=== PATIENT | female | born 1990 | race Caucasian/White ===

== ENCOUNTER 2016-06-06 17:40 | Observation (INO) | payer BC, MEDICAID ==
[~2016-06-06] VITALS: Ht 167.6 cm; Wt 119.7 kg
[~2016-06-06 17:40] MED LIST: FLC150T PO; FRS325T PO; IBP600T1 PO; NITR100C3 PO; OXYC-12 PO; PHEN200T27 PO; PREN1TAB19 PO; PREN1TAB39; [UNRECOGNIZED DRUG - OTHER]
[2016-06-06 18:20] VITALS: BP 126/70
[2016-06-06 18:38] LABS: BASOPHILS % (AUTO) 0 % (0-10); EOSINOPHILS # (AUTO) 0.1 10^3/uL (0.0-0.3); EOSINOPHILS % (AUTO) 1 % (0-10); LYMPHOCYTES # (AUTO) 2.1 X 10^3 (1.0-4.0); LYMPHOCYTES % (AUTO) 21 % (12-44); MEAN CORPUSCULAR HEMOGLOBIN 29 PG (25-34); MEAN CORPUSCULAR HGB CONC 33 G/DL (32-36); MEAN CORPUSCULAR VOLUME 88 FL (80-99); MEAN PLATELET VOLUME 9.9 FL (7.4-10.4); MONOCYTES # (AUTO) 0.7 X 10^3 (0.0-1.0); MONOCYTES % (AUTO) 7 % (0-12); NEUTROPHILS # (AUTO) 7.1 X 10^3 (1.8-7.8); NEUTROPHILS % (AUTO) 71 % (42-75); PLATELET COUNT 211 10^3/uL (130-400); RED BLOOD COUNT 4.08 10^6/uL (4.35-5.85); RED CELL DISTRIBUTION WIDTH 13.6 % (10.0-14.5); WHITE BLOOD COUNT 9.9 10^3/uL (4.3-11.0)
[2016-06-06 18:55] LABS: ALANINE AMINOTRANSFERASE 11 U/L (0-55); ALBUMIN 3.6 G/DL (3.2-4.5); ANION GAP 11 MMOL/L (5-14); ASPARTATE AMINO TRANSFERASE 21 U/L (5-34); BILIRUBIN,TOTAL 0.1 MG/DL (0.1-1.0); BLOOD UREA NITROGEN 5 MG/DL (7-18); BUN/CREATININE RATIO 9; CALCIUM 8.5 MG/DL (8.5-10.1); CARBON DIOXIDE 18 MMOL/L (21-32); CHLORIDE 109 MMOL/L (98-107); CREATININE SERUM 0.56 MG/DL (0.60-1.30); GFR ESTIMATED > 60; GLUCOSE 93 MG/DL (70-105); LACTATE DEHYDROGENASE 308 U/L (125-220); SODIUM 138 MMOL/L (135-145); URIC ACID 3.6 MG/DL (2.6-7.2)
[2016-06-06 18:57] LABS: POTASSIUM 4.2 MMOL/L (3.6-5.0)
[2016-06-06 19:06] VITALS: BP 129/65
[2016-06-06] MEDS ORDERED: FLU TRIvalent (5 YOA+) 2016-17 (AFLURIA) 0.5 ML IM ONE (19:45)
[2016-06-06 20:10] VITALS: BP 130/62
[2016-06-07 00:45] VITALS: BP 116/70
[2016-06-07 04:45] VITALS: BP 109/67
[2016-06-07 08:55] VITALS: BP 123/67
[2016-06-07 09:38] VITALS: BP 123/67
[2016-06-07 11:53] VITALS: BP 123/59
[2016-06-07 16:59] VITALS: BP 138/66
[2016-06-08] MEDS ORDERED: PRENATAL VITAMIN 1 EA TAB PO SCH (07:00)
[2016-06-08] MEDS ORDERED: FE FUMARATE PO SCH (09:00)
[2016-06-08] MEDS ORDERED: [UNRECOGNIZED DRUG - OTHER] PO SCH (09:00)
[2016-06-08] MEDS ORDERED: PRENATAL VIT PO SCH (09:00)
--- NOTE | 2016-06-08 17:56 | Short Stay Summary ---
HPI History of Present Illness: 26 yo F admitted from clinic by Dr Delarosa for 24 hr urine. Patient was seen in clinic today with blood pressures in the 160s/90s with headache. No previous blood pressure concerns. Denies any labor signs. + FM. Source: patient, RN/MD Exam Limitations: no limitations Date seen by provider: Jun 07, 2016 Time seen by provider: 08:35 Attending Physician Jeff Delarosa MD PCP Jeff Delarosa MD Consult Date of Admission Jun 06, 2016 at 17:40 Home Medications Home Medications Reviewed patient Home Medication Reconciliation Form Allergies Coded Allergies: Sulfa (Sulfonamide Antibiotics) (Unverified Allergy, Mild, HIVES, 12/22/10) DGF-Oinltl-Aeluvw Hx Patient Social History Smoking Status: Never a Smoker Recent Foreign Travel: No Contact w/other who traveled: No Recent Infectious Disease Expo: No Physical Abuse Screen: No Sexual Abuse: No Immunizations Up To Date Tetanus Booster (TDap): Less than 5yrs Past Medical History No PMHx Family Medical History Family History: Cancer Cancer of colon 19 FATHER (PGM, breast) 19 MOTHER (MGM, cervical) Family history: Arthritis Family history: Cardiovascular disease 19 MOTHER (MGM, MGF) Family history: Diabetes mellitus 19 MOTHER (MGM, aunts) Family history: Hypertension 19 FATHER 19 MOTHER Heart disease 19 MOTHER (MGF, MGM) Hypercholesterolemia 19 FATHER Stroke 19 MOTHER (MGM) No Family History of: Abdominal aortic aneurysm Montrose's disease Alcoholism Aphasia Cataract Chest pain Congenital heart disease Congestive heart failure Cystic fibrosis Dementia Dysphagia Family history: Allergy Family history: Alzheimer's disease Family history: Asthma Family history: Breast disease Family history: Coronary thrombosis Family history: Gastrointestinal disease Family history: Glaucoma Family history: Osteoporosis Family history: Thyroid disorder Headache Hearing loss Hereditary disease History of - anemia History of - disorder History of - respiratory disease History of drug abuse Human immunodeficiency virus (HIV) seropositivity Infertile Kidney disease Malignant neoplasm of lung Myocardial infarction Parkinson's disease Prostate cancer Psychotic disorder Seizure disorder Tuberculosis Visual impairment Review of Systems (CHC) Constitutional: no symptoms reportedNo chills, No fever, No weakness EENTM: no symptoms reportedNo blurred vision, No double vision, No hearing loss Respiratory: no symptoms reportedNo cough, No dyspnea on exertion, No short of breath Cardiovascular: no symptoms reportedNo chest pain, edema (trace edema, no acute changes) Gastrointestinal: no symptoms reportedNo abdominal pain, No constipation, No diarrhea, No heartburn, No nausea, No vomiting Genitourinary: no symptoms reportedNo dysuria, No frequency, No hematuria : Yes Musculoskeletal: no symptoms reportedNo joint swelling Skin: no symptoms reportedNo rash Psychiatric/Neurological: No Symptoms Reported HeadacheDenies Numbness Reviewed Test Results Reviewed Test Results Lab Laboratory Tests Test 06/06/16 18:15 06/07/16 17:48 Range/Units Alanine Aminotransferase (ALT/SGPT) 11 0-55 U/L Albumin 3.6 3.2-4.5 G/DL Alkaline Phosphatase 92 40-136 U/L Anion Gap 11 5-14 MMOL/L Aspartate Amino Transf (AST/SGOT) 21 5-34 U/L BUN/Creatinine Ratio 9 Basophils # (Auto) 0.0 0.0-0.1 10^3/uL Basophils (%) (Auto) 0 0-10 % Blood Urea Nitrogen 5 L 7-18 MG/DL Calcium Level 8.5 8.5-10.1 MG/DL Carbon Dioxide Level 18 L 21-32 MMOL/L Chloride Level 109 H 98-107 MMOL/L Creatinine 0.56 L 0.60-1.30 MG/DL Eosinophils # (Auto) 0.1 0.0-0.3 10^3/uL Eosinophils (%) (Auto) 1 0-10 % Estimat Glomerular Filtration Rate > 60 Glucose Level 93 70-105 MG/DL Hematocrit 36 35-52 % Hemoglobin 12.0 11.5-16.0 G/DL Lactate Dehydrogenase 308 H 125-220 U/L Lymphocytes # (Auto) 2.1 1.0-4.0 X 10^3 Lymphocytes (%) (Auto) 21 12-44 % Mean Corpuscular Hemoglobin 29 25-34 PG Mean Corpuscular Hemoglobin Concent 33 32-36 G/DL Mean Corpuscular Volume 88 80-99 FL Mean Platelet Volume 9.9 7.4-10.4 FL Monocytes # (Auto) 0.7 0.0-1.0 X 10^3 Monocytes (%) (Auto) 7 0-12 % Neutrophils # (Auto) 7.1 1.8-7.8 X 10^3 Neutrophils (%) (Auto) 71 42-75 % Platelet Count 211 130-400 10^3/uL Potassium Level 4.2 3.6-5.0 MMOL/L Red Blood Count 4.08 L 4.35-5.85 10^6/uL Red Cell Distribution Width 13.6 10.0-14.5 % Sodium Level 138 135-145 MMOL/L Total Bilirubin 0.1 0.1-1.0 MG/DL Total Protein 7.0 6.4-8.2 G/DL Uric Acid 3.6 2.6-7.2 MG/DL White Blood Count 9.9 4.3-11.0 10^3/uL Urine Total Protein 24 Hour 0-149 MG/24H Urine Total Protein mg/dL < 6 L 6-12 MG/DL Urine Total Volume 3300 ML Physical Exam-([facility]) Physical Exam Vital Signs VS - Last 72 Hours, by Label 06/06/16 06/06/16 06/06/16 06/07/16 18:20 19:06 20:10 00:45 Temp 98.7 98.6 98.4 Pulse 95 84 89 99 Resp 18 18 18 18 B/P 126/70 129/65 130/62 116/70 Pulse Ox 95 O2 Delivery Room Air Room Air Room Air Room Air 06/07/16 06/07/16 06/07/16 06/07/16 04:45 08:55 09:38 11:53 Temp 98.8 98.8 98.1 Pulse 90 103 103 83 Resp 18 18 18 18 B/P 109/67 123/67 123/67 123/59 Pulse Ox 98 O2 Delivery Room Air Room Air Room Air 06/07/16 06/07/16 16:59 19:48 Temp 98.3 Pulse 84 Resp 18 B/P 138/66 O2 Delivery Room Air Capillary Refill : General Appearance: WD/WN no apparent distress Eyes: Bilateral Eye EOMI, Bilateral Eye Normal Inspection, Bilateral Eye PERRL Neck: non-tender full range of motion supple normal inspection Respiratory: chest non-tender lungs clear normal breath sounds no respiratory distress no accessory muscle use Cardiovascular: regular rate, rhythm no gallop no JVD no murmur other (trace edema) Gastrointestinal: normal bowel sounds non tender soft (gravid uterus) no organomegaly no pulsatile mass Back: no CVA tenderness Extremities: normal range of motion non-tender normal inspection no calf tenderness normal capillary refill Neurologic/Psychiatric: manager retirement II-XII nml as tested no motor/sensory deficits alert normal mood/affect oriented x 3 other (Normal patellar reflexes) Skin: normal color warm/dry Lymphatic: no adenopathy Short Stay Diagnosis Discharge Diagnosis-Short Stay Admission Diagnosis 2nd trimester Gestational HTN Final Discharge Diagnosis See Above Conclusion Plan 26 yo @ 26.6 wga that was admitted for elevated blood pressures in clinic. Blood pressures were controlled during hospitalization without intervention. 24 hr urine was collected with undetectable amount of protein. Patient was discharged with good return precautions regarding pre eclampsia and has close follow up with Dr Delarosa Copy Copies To 1: JEFF DELAROSA MD, HOLLY R MD Jun 08, 2016 17:56
== END 2016-06-07 18:54 | disposition home or self-care (01) ==
LOC: LDRP 17:40 → WSo 17:49 → LDRP 18:10 → WSo 06-07 19:49 → LDRP 06-07 19:49 → EDSTATUS 06-08 14:00
PROVIDERS: ADMIT Family Medicine; ATTEND Family Medicine
DX: O13.2 Gestational [pregnancy-induced] hypertension without significant proteinuria, second trimester (principal); Z3A.26 26 weeks gestation of pregnancy
CPT/HCPCS: 36415; 80053; 83615; 84156; 84550; 85025; 99211; G0378

== ENCOUNTER → 2016-06-27 | Outpatient (CLI) | payer BC, MEDICAID ==
[~2016-06-27] MED LIST changes: +IBUP-1773 PO; +LABE50DI IV
--- NOTE | 2016-06-27 17:44 | Diagnostic Imaging Report ---
INDICATION: Gestational hypertension. OB sonography performed for measurements. Comparison made with 05/16/2016. FINDINGS: Single live intrauterine fetus is seen measuring 30 weeks 3 days by composite measurements. This is about 1 week larger than expected for original dates. The fetus is in cephalic presentation. The amniotic fluid index is 16.3 cm. Cervical length is 6.8 cm. heart rate is 128 beats per minute. IMPRESSION: Single live intrauterine fetus measuring at 30 weeks 3 days in size, about 1 week larger than expected from original dates but probably within variation of late . There was no detectable abnormality. Dictated by: Dictated on workstation # [id number]
== END ==
LOC: RAD 16:55
PROVIDERS: ATTEND Family Medicine
DX: O13.3 Gestational [pregnancy-induced] hypertension without significant proteinuria, third trimester (principal); Z3A.30 30 weeks gestation of pregnancy
CPT/HCPCS: 76816

== ENCOUNTER 2016-07-03 17:34 | Outpatient (CLI) | payer BC, MEDICAID ==
[~2016-07-03] VITALS: Ht 167.6 cm; Wt 115.7 kg
[~2016-07-03 17:34] MED LIST changes: -IBUP-1773 PO; -LABE50DI IV
[2016-07-03 18:56] LABS: BASOPHILS % (AUTO) 0 % (0-10); EOSINOPHILS # (AUTO) 0.1 10^3/uL (0.0-0.3); EOSINOPHILS % (AUTO) 1 % (0-10); LYMPHOCYTES # (AUTO) 2.4 X 10^3 (1.0-4.0); LYMPHOCYTES % (AUTO) 27 % (12-44); MEAN CORPUSCULAR HEMOGLOBIN 30 PG (25-34); MEAN CORPUSCULAR HGB CONC 34 G/DL (32-36); MEAN CORPUSCULAR VOLUME 88 FL (80-99); MEAN PLATELET VOLUME 9.7 FL (7.4-10.4); MONOCYTES # (AUTO) 0.5 X 10^3 (0.0-1.0); MONOCYTES % (AUTO) 6 % (0-12); NEUTROPHILS # (AUTO) 5.9 X 10^3 (1.8-7.8); NEUTROPHILS % (AUTO) 67 % (42-75); PLATELET COUNT 180 10^3/uL (130-400); RED BLOOD COUNT 3.83 10^6/uL (4.35-5.85); RED CELL DISTRIBUTION WIDTH 13.6 % (10.0-14.5); WHITE BLOOD COUNT 8.9 10^3/uL (4.3-11.0)
[2016-07-03 19:20] LABS: ALANINE AMINOTRANSFERASE 7 U/L (0-55); ALBUMIN 3.3 G/DL (3.2-4.5); ANION GAP 12 MMOL/L (5-14); ASPARTATE AMINO TRANSFERASE 9 U/L (5-34); BILIRUBIN,TOTAL 0.2 MG/DL (0.1-1.0); BLOOD UREA NITROGEN 5 MG/DL (7-18); BUN/CREATININE RATIO 9; CARBON DIOXIDE 19 MMOL/L (21-32); CHLORIDE 109 MMOL/L (98-107); CREATININE SERUM 0.57 MG/DL (0.60-1.30); GFR ESTIMATED > 60; GLUCOSE 104 MG/DL (70-105); LACTATE DEHYDROGENASE 147 U/L (125-220); POTASSIUM 3.4 MMOL/L (3.6-5.0); SODIUM 140 MMOL/L (135-145); TOTAL PROTEIN 6.1 G/DL (6.4-8.2)
[2016-07-03 20:05] VITALS: BP 113/61
[2016-07-03] MEDS ORDERED: LABE50DI IV (20:20)
--- NOTE | 2016-07-04 09:21 | Physician Query-Final Dx ---
KRYSTLE SANTORO 07/04/16 0921: Clinic Account Progress/Dx Physician Query: Please give diagnosis Date of Service Jul 03, 2016 at 17:34 JEFF PANDEY MD 07/04/16 1332: Clinic Account Progress/Dx DIAGNOSIS: Diagnosis 30 weeks gestation Preeclampsia KRYSTLE SANTORO Jul 04, 2016 09:21 JEFF PANDEY MD Jul 04, 2016 13:32
== END 2016-07-03 20:30 | disposition home or self-care (01) ==
LOC: WSo 17:34 → LDRP 17:34 → WSo 20:30
PROVIDERS: ATTEND Family Medicine
DX: O14.93 Unspecified pre-eclampsia, third trimester (principal); Z3A.30 30 weeks gestation of pregnancy
CPT/HCPCS: 36415; 80053; 82570; 83615; 84156; 84550; 85025; 99213

== ENCOUNTER 2016-08-30 05:51 | Inpatient (IN) | payer BC, MEDICAID ==
[2016-08-30] VITALS (63 sets, daily range): BP systolic 105–139; BP diastolic 54–86
[~2016-08-30] VITALS: Ht 167.6 cm; Wt 121.1 kg
[~2016-08-30 05:51] MED LIST changes: +LABE50DI IV
[2016-08-30] MEDS ORDERED: D5 LR IV SOLUTION 1,000 ML IV ONE (06:11)
[2016-08-30] MEDS ORDERED: MINERAL OIL CONCENTRATE 99.9% 15 ML UDC TOP PRN (06:15)
[2016-08-30 06:21] LABS: BILIRUBIN,URINE NEGATIVE (NEGATIVE); KETONES,URINE NEGATIVE (NEGATIVE); LEUKOCYTE ESTERASE ,URINE 2+ (NEGATIVE); NITRITE,URINE NEGATIVE (NEGATIVE); PH,URINE 7 (5-9); PROTEIN,URINE NEGATIVE (NEGATIVE); UROBILINOGEN,URINE NORMAL (NORMAL)
[2016-08-30] MEDS: D5 LR IV SOLUTION 1,000 ML IV SCH ×2 (06:54→14:22)
[2016-08-30 06:57] LABS: WBC,URINE 0-2 /HPF
[2016-08-30 07:22] LABS: BASOPHILS % (AUTO) 0 % (0-10); EOSINOPHILS # (AUTO) 0.1 10^3/uL (0.0-0.3); EOSINOPHILS % (AUTO) 1 % (0-10); LYMPHOCYTES # (AUTO) 2.5 X 10^3 (1.0-4.0); LYMPHOCYTES % (AUTO) 28 % (12-44); MEAN CORPUSCULAR HEMOGLOBIN 28 PG (25-34); MEAN CORPUSCULAR HGB CONC 33 G/DL (32-36); MEAN CORPUSCULAR VOLUME 87 FL (80-99); MEAN PLATELET VOLUME 10.3 FL (7.4-10.4); MONOCYTES # (AUTO) 0.7 X 10^3 (0.0-1.0); MONOCYTES % (AUTO) 8 % (0-12); NEUTROPHILS # (AUTO) 5.8 X 10^3 (1.8-7.8); NEUTROPHILS % (AUTO) 64 % (42-75); PLATELET COUNT 189 10^3/uL (130-400); RED BLOOD COUNT 3.95 10^6/uL (4.35-5.85); RED CELL DISTRIBUTION WIDTH 14.3 % (10.0-14.5); WHITE BLOOD COUNT 9.1 10^3/uL (4.3-11.0)
[2016-08-30] MEDS ORDERED: FLU TRIvalent (5 YOA+) 2016-17 (AFLURIA) 0.5 ML IM ONE (07:30)
[2016-08-30] MEDS ORDERED: OXYTOCIN/NORMAL SALINE 500 ML IV SCH ×2 (08:06→20:27)
--- NOTE | 2016-08-30 08:12 | History & Physical-OB ---
OB - Chief Complaint & HPI Date Date of Admission: Date of Admission: Aug 30, 2016 at 5:51 am Chief Complaint/History OB-Reason for Admission/Chief: Induction of Labor Hx : 3 Hx Para: 2 Expected Date of Delivery: Sep 07, 2016 Gestational Age in Weeks: 38 Gestational Age in Days: 6 Indication for induction: medical complication (gestational hypertension with superimposed proteinuria/mild preeclampsia) Other reason for admission: at 38w6d here for IOL due to mild preeclampsia. Initially with severe gestational hypertension at 26 weeks requiring treatment with labetalol. Referred to [facility] and has been following weekly there with BPP, umbilical artery dopplers and intermittent growth scans. At 29 weeks, pr/cr ratio 0.305 leading to diagnosis of mild preeclampsia superimposed on HTN. Last growth done last week with EFW 3433 and normal BPP and umbilical dopplers. Weekly preeclampsia labs have been negative with the exception of the mild proteinuria. History of Labs O+, antibody neg. RI. GC/Chlamydia neg. RPR/Hep B/HIV neg. Quad screen low risk. 1 hour glucola nml. GBS neg. Allergies and Home Medications Allergies Coded Allergies: Sulfa (Sulfonamide Antibiotics) (Verified Allergy, Mild, HIVES, 08/30/16) Home Medications Labetalol HCl 50 Mg/10 Ml Syringe, 50 MG IV BID, (Reported) Vit/Fe Fumarate/Fa 1 Each Tablet, 1 EACH PO DAILY, (Reported) OB - History Hx of Present Care: Yes Ultrasounds: Normal mid trimester US Obstetrical Complications: Pre-eclampsia Medical Complications: None Information Induced Hypertension: Yes Maternal Gestational Diabetes: No Obstetrical History Hx : 3 Hx Para: 2 Hx # Term Pregnancies: 2 Hx # Pregnancies: 0 Number of Living Children: 2 Hx Termination: No Hx Multiple Gestation: No Hx Ectopic : No Hx Stillbirth: No Hx Complication: No Hx Induced Hypertens: No Hx Maternal Gestational Diabet: No Delivery History Hx Dystocia: No Hx Forceps Assisted Delivery: No Hx Vacuum Extraction Assisted: No Hx Placenta Abnormality: No Hx Large For Gestational Age I: No Hx Small for Gestational Age I: No Hx Section: No Hx Vaginal Delivery Post C-Sec: No Hx Blood Disorders: No Patient Past Medical History No PMHx Social History/Family History HIV/AIDS: No Recent Infectious Disease Expo: No Sexually Transmitted Disease: No Alcohol Use: Denies Use Recreational Drug Use: No Smoking Cessation: Never smoker Immunizations Hepatitis A: Yes Hepatitis B: Yes Tetanus Booster (TDap): Less than 5yrs Rubella: immune RPR/VDRL: Negative GBS Status: Negative HBsAG: Negative OB - Admission Exam Physical Exam Vitals: Vital Signs 08/30/16 06:10 Temp 98.0 Pulse 111 Resp 18 B/P (MAP) 139/83 O2 Delivery Room Air HEENT: NCAT Abdomen: Non tender Extremities: Edema (mild non-pitting) Cervical Dilatation: 4cm Effacement: 25% Station: -3 Membranes: Intact Heart Rate: 140's Accelerations: Accelerations Present Decelerations: No Decelerations Short Term Variability: Present Equipment Maintenance Technician Variability: Average (6-25) Contractions on Admission: 6-10 Minutes Apart Intensity: Mild Billingsley Scoring Tool (Modified) Dilation (cm): 3-4cm (2) Effacement (%): 0-30% (0) Descent/Station: -3 (0) Cervix Consistency: Soft (2) Cervix Position: Anterior (2) Add 1 point for: Pre-eclampsia (1), Each previous vaginal delivery (1) (2) Billingsley Score: 9 Labs Laboratory Tests Test 08/30/16 06:05 08/30/16 07:05 Range/Units Urine Color YELLOW Urine Clarity CLEAR Urine pH 7 5-9 Urine Specific [place] 1.010 L 1.016-1.022 Urine Protein NEGATIVE NEGATIVE Urine Glucose (UA) NEGATIVE NEGATIVE Urine Ketones NEGATIVE NEGATIVE Urine Nitrite NEGATIVE NEGATIVE Urine Bilirubin NEGATIVE NEGATIVE Urine Urobilinogen NORMAL NORMAL MG/DL Urine Leukocyte Esterase 2+ H NEGATIVE Urine RBC (Auto) NEGATIVE NEGATIVE Urine RBC NONE /HPF Urine WBC 0-2 /HPF Urine Squamous Epithelial Cells 10-25 H /HPF Urine Crystals NONE /LPF Urine Bacteria TRACE /HPF Urine Casts NONE /LPF Urine Mucus NEGATIVE /LPF Urine Culture Indicated NO White Blood Count 9.1 4.3-11.0 10^3/uL Red Blood Count 3.95 L 4.35-5.85 10^6/uL Hemoglobin 11.2 L 11.5-16.0 G/DL Hematocrit 34 L 35-52 % Mean Corpuscular Volume 87 80-99 FL Mean Corpuscular Hemoglobin 28 25-34 PG Mean Corpuscular Hemoglobin Concent 33 32-36 G/DL Red Cell Distribution Width 14.3 10.0-14.5 % Platelet Count 189 130-400 10^3/uL Mean Platelet Volume 10.3 7.4-10.4 FL Neutrophils (%) (Auto) 64 42-75 % Lymphocytes (%) (Auto) 28 12-44 % Monocytes (%) (Auto) 8 0-12 % Eosinophils (%) (Auto) 1 0-10 % Basophils (%) (Auto) 0 0-10 % Neutrophils # (Auto) 5.8 1.8-7.8 X 10^3 Lymphocytes # (Auto) 2.5 1.0-4.0 X 10^3 Monocytes # (Auto) 0.7 0.0-1.0 X 10^3 Eosinophils # (Auto) 0.1 0.0-0.3 10^3/uL Basophils # (Auto) 0.0 0.0-0.1 10^3/uL OB - Assessment/Plan/Diagnosis Assessment Assessment: induction of labor Plan Plan: Induction Induction Method: per Pitocin Protocol Other Plan Preeclampsia- magnesium sulfate per protocol, decrease maintenance fluid to 80 mls/hr, treat hypertension above 160/100 as needed with IV labetalol Copy Copies To 1: JEFF PANDEY MD, BETHANY N MD Aug 30, 2016 8:12 am
[2016-08-30] MEDS ORDERED: CALCIUM GLUC. 10% 4.65 MEQ/10 ML VIAL IV PRN (08:15)
[2016-08-30] MEDS ORDERED: MAGNESIUM 4 GM/100 ML IVPB 100 ML IV NR (08:15)
[2016-08-30 08:30] LABS: ALANINE AMINOTRANSFERASE 8 U/L (0-55); ANION GAP 7 MMOL/L (5-14); ASPARTATE AMINO TRANSFERASE 9 U/L (5-34); BILIRUBIN,TOTAL 0.2 MG/DL (0.1-1.0); BLOOD UREA NITROGEN 5 MG/DL (7-18); BUN/CREATININE RATIO 9; CALCIUM 9.3 MG/DL (8.5-10.1); CARBON DIOXIDE 21 MMOL/L (21-32); CHLORIDE 107 MMOL/L (98-107); CREATININE SERUM 0.58 MG/DL (0.60-1.30); GFR ESTIMATED > 60; GLUCOSE 104 MG/DL (70-105); LACTATE DEHYDROGENASE 164 U/L (125-220); MAGNESIUM 1.5 MG/DL (1.8-2.4); POTASSIUM 3.9 MMOL/L (3.6-5.0); SODIUM 135 MMOL/L (135-145); TOTAL PROTEIN 5.9 G/DL (6.4-8.2); URIC ACID 4.1 MG/DL (2.6-7.2)
[2016-08-30] MEDS: MAGNESIUM SULFATE DRIP 500 ML IV SCH ×3 (08:35→18:32)
[2016-08-30] MEDS ORDERED: ACETAMINOPHEN 500 MG TAB (TYLENOL) ONE (09:13)
[2016-08-30] MEDS: ACETAMINOPHEN 500 MG TAB (TYLENOL) PO PRN ×2 (09:17→20:25)
[2016-08-30] MEDS ORDERED: SUFENTA 0.6MCG/ML BUPIVA 0.125 100 ML ONE (10:31)
[2016-08-30] MEDS ORDERED: BUPIVACAINE 0.25% 30 ML (SENSORCAINE) VIAL ONE (11:52)
[2016-08-30] MEDS ORDERED: fentaNYL INJECTION 100 MCG/2 ML AMP ONE (11:52)
[2016-08-30] MEDS ORDERED: LACTATED RINGERS 1,000 ML IV ONE ×2 (12:22)
[2016-08-30] MEDS ORDERED: fentaNYL INJECTION 100 MCG/2 ML AMP INJ ONE (12:30)
[2016-08-30] MEDS ORDERED: ONDANSETRON 4 MG/2 ML (SDV) Z0FRAN IV PRN (12:30)
[2016-08-30] MEDS ORDERED: EPIDURAL (SUFENTA 0.6MCG/ML BUPIVA 0.125%) 100 ML BAG EPI PRN (12:30)
[2016-08-30] MEDS ORDERED: BUPIVACAINE 0.25% 30 ML (SENSORCAINE) VIAL INJ ONE (12:30)
[2016-08-30] MEDS ORDERED: NALOXONE 0.4 MG/ML 1 ML (NARCAN) VIAL IV PRN (12:30)
--- NOTE | 2016-08-30 12:45 | OB Labor & Delivery Record ---
L&D History Date of Service Date of Service: Aug 30, 2016 History Expected Date of Delivery: Sep 07, 2016 Gestational Age in Weeks: 38 Hx : 3 Hx Para: 2 Complications Events: Pre-Eclampsia Operative Indications (Cesarea: N/A-Vaginal Delivery L&D Stage1 Stage One Onset of Labor - Date: Aug 30, 2016 Onset of Labor - Time: 08:00 Duration - Stage I: 10.5 hours Monitors and Tracing Monitor Mode: External Heart Rate: 135 Station: -1 Vital Signs VS - Last 72 Hours, by Label 08/30/16 08/30/16 08/30/16 08/30/16 06:10 08:00 08:30 08:45 Temp 98.0 Pulse 111 88 94 90 Resp 18 18 18 18 B/P (MAP) 139/83 128/71 125/64 130/74 O2 Delivery Room Air Room Air Room Air Room Air 08/30/16 08/30/16 08/30/16 08/30/16 09:00 09:15 09:30 09:45 Pulse 88 88 92 81 Resp 18 18 20 20 B/P (MAP) 120/68 120/68 123/68 116/66 O2 Delivery Room Air Room Air Room Air Room Air 08/30/16 08/30/16 08/30/16 08/30/16 10:00 10:15 10:30 10:45 Temp 98.4 Pulse 74 83 75 81 Resp 20 20 20 20 B/P (MAP) 117/59 115/62 111/68 113/62 O2 Delivery Room Air Room Air Room Air Room Air Rupture of Membranes Spontaneous Ruture of Membrane: No Amniotic Membrane Rupture Time: 12:36 Amniotic Membrane Fluid Desc.: Clear Progress/Notes 1240: Comfortable with epidural. Pitocin at 16. SVE 4.5/30%/-3. FHT 130-140, moderate variability, occasional variable deceleration. Ctx 2-3/10. AROM at 1236 with clear fluid. FSE placed due to difficulty tracing. Continue magnesium , pitocin, monitor closely, no elevated BP so far. Anticipate . L&D Stage2 Stage Two Stage II Date: Aug 30, 2016 Stage II Time: 18:45 Stage II Duration: 1 hour Monitors and Tracing Monitor Mode: External Heart Rate: 135 Monitor Decelerations: Variable Prison Variability: Average (6-10) Short Term Variability: Present Position: Left Occiput Anterior Presentation: Vertex Cord Descript/Complications Cord Vessel Description: 3 Vessels Delivery Type Delivery Method: Spontaneous Vaginal Anterior Shoulder: Left Episiotomy/Perineal Laceration Laceraction(s)/Extensions: No Episiotomy Description: Periurethral Extnsion/lac (abrasion) Degree (describe repair) Abrasion, no repair needed Condition of Infant Delivery Delivery Date & Time: 08/30/16 at 1947 1 minute Comment: 8 5 minute Comment: 8 Condition of Condition of Infant: Living Exam: No Observed Abnormalities Resuscitation Resuscitation: Oxygen Blowby L&D Stage3 Stage Three Stage III Date: Aug 30, 2016 Stage III Time: 19:47 Placenta Delivery Placenta Delivery: Spontaneous Delivery Summary Summary Total Labor Time 11.5 Vaginal blood loss >500ml: No 250 ml Attending at delivery: MD Rhea Villalobos MD PGY-2 [place] [employer] [employer] Resident Condition of Delivery Condition of Mother Stable Condition of (s) Stable JEFF PANDEY MD Aug 30, 2016 12:45 pm
[2016-08-30] MEDS ORDERED: CATHETER FLUSH 10 ML SYR IV SCH ×2 (14:00→22:00)
[2016-08-30] MEDS ORDERED: LIDOCAINE/EPI 1%-1:200,000 (XYLOCAINE) 30 ML VIAL ONE (19:31)
[2016-08-30] MEDS ORDERED: BENZOCAINE/MENTHOL (DERMOPLAST) 56 ML CAN TP PRN (20:30)
[2016-08-30] MEDS ORDERED: WITCH HAZEL(TUCKS) 40 EA JAR TOP PRN (20:30)
[2016-08-30 20:34] LABS: ABG BASE EXCESS -4.5 MMOL/L (-2.5-2.5); ABG HCO3 20 MMOL/L (23-27); ABG OXYGEN SATURATION 101 % (94-100); ABG PCO2 38 MMHG (35-45); ABG PO2 73 MMHG (79-93); CORD ARTERIAL BLOOD PH 7.35 (7.35-7.45)
[2016-08-30] MEDS ORDERED: ACETAMINOPHEN 500 MG TAB (TYLENOL) PO PRN (20:45)
[2016-08-31] VITALS (11 sets, daily range): BP systolic 95–123; BP diastolic 51–69
[2016-08-31] MEDS: D5 LR IV SOLUTION 1,000 ML IV SCH (02:52)
[2016-08-31] MEDS: MAGNESIUM SULFATE DRIP 500 ML IV SCH (05:56)
[2016-08-31 06:17] LABS: BASOPHILS % (AUTO) 0 % (0-10); EOSINOPHILS # (AUTO) 0.1 10^3/uL (0.0-0.3); EOSINOPHILS % (AUTO) 1 % (0-10); LYMPHOCYTES # (AUTO) 2.5 X 10^3 (1.0-4.0); LYMPHOCYTES % (AUTO) 24 % (12-44); MEAN CORPUSCULAR HEMOGLOBIN 29 PG (25-34); MEAN CORPUSCULAR HGB CONC 33 G/DL (32-36); MEAN CORPUSCULAR VOLUME 88 FL (80-99); MEAN PLATELET VOLUME 10.2 FL (7.4-10.4); MONOCYTES # (AUTO) 0.6 X 10^3 (0.0-1.0); MONOCYTES % (AUTO) 6 % (0-12); NEUTROPHILS # (AUTO) 7.1 X 10^3 (1.8-7.8); NEUTROPHILS % (AUTO) 69 % (42-75); PLATELET COUNT 183 10^3/uL (130-400); RED BLOOD COUNT 3.51 10^6/uL (4.35-5.85); RED CELL DISTRIBUTION WIDTH 14.3 % (10.0-14.5); WHITE BLOOD COUNT 10.2 10^3/uL (4.3-11.0)
[2016-08-31] MEDS ORDERED: PRENATAL VITAMIN 1 EA TAB PO SCH (07:00)
[2016-08-31] MEDS: ACETAMINOPHEN 500 MG TAB (TYLENOL) PO PRN ×2 (07:10→14:17)
--- NOTE | 2016-08-31 13:30 | Anesthesia-Regional Post-Op ---
Regional Patient Condition Mental Status: Alert, Oriented x3 Circulation: Same as Pre-Op Headache: Absent Sensation: Full Recovery Motor Block: Absent Post Op Complications Complications None Follow Up Care/Instructions Patient Instructions None needed. Anesthesia/Patient Condition Patient is doing well, no complaints, stable vital signs, no apparent adverse anesthesia problems. No complications reported per nursing. RIDDHI QURESHI CRNA Aug 31, 2016 13:30
--- NOTE | 2016-08-31 18:20 | Progress Note (SOAP) ---
Subjective Subjective/Events-last exam No concerns this AM. + flatus, lochia same as period, denies clots. Tolerating PO and ambulation. Clement remains in as Magnesium was just discontinued. Date seen by provider: Aug 31, 2016 Time seen by provider: 09:15 Objective Exam Last Set of Vital Signs Vital Signs Date Time Temp Pulse Resp B/P (MAP) Pulse Ox O2 Delivery O2 Flow Rate FiO2 08/31/16 16:15 98.5 88 18 110/58 96 Room Air 08/30/16 19:45 10.00 Capillary Refill : I&O Bad tableGeneral: Alert, Oriented X3, Cooperative, No Acute Distress Lungs: Clear to Auscultation, Normal Air Movement Heart: Regular Rate, No Murmurs Abdomen: Soft, Other (fundus below umbilicus) Extremities: Other (1+ pitting edema bilaterally, no tenderness) Neuro: Reflexes 2+ Results/Procedures Lab Laboratory Tests 08/30/16 19:51: Arterial Blood Partial Pressure CO2 38, Arterial Blood Partial Pressure O2 73L, Arterial Blood HCO3 20L, Arterial Blood Oxygen Saturation 101H, Arterial Blood Base Excess -4.5L, Cord Arterial Blood pH 7.35, Blood Gas Inspired Oxygen ROOM AIR 08/31/16 06:04: White Blood Count 10.2, Red Blood Count 3.51L, Hemoglobin 10.0L, Hematocrit 31L , Mean Corpuscular Volume 88, Mean Corpuscular Hemoglobin 29, Mean Corpuscular Hemoglobin Concent 33, Red Cell Distribution Width 14.3, Platelet Count 183, Mean Platelet Volume 10.2, Neutrophils (%) (Auto) 69, Lymphocytes (%) (Auto) 24 , Monocytes (%) (Auto) 6, Eosinophils (%) (Auto) 1, Basophils (%) (Auto) 0, Neutrophils # (Auto) 7.1, Lymphocytes # (Auto) 2.5, Monocytes # (Auto) 0.6, Eosinophils # (Auto) 0.1, Basophils # (Auto) 0.0 Assessment/Plan Assessment/Plan Plan 26 yo G3 now P3 del term female infant via while on Magnesium for pre eclampsia now PPD #1 Plan Routine post care Magnesium has been discontinued, clement to be d/c now Blood pressures <120, well controlled Bleeding controlled Hgb 11.2-->10.0 Pain well controlled on Motrin Breast feeding Plan to d.c tomorrow with , BP check next week with Dr Delarosa Diagnosis/Problems: Clinical Quality Measures DVT/VTE Risk/Contraindication: Risk Factor Score Per Nursin RFS Level Per Nursing on Admit: 3=High RODNEY CASTRO MD Aug 31, 2016 18:20
[2016-08-31] MEDS: IBUPROFEN 600 MG (MOTRIN) TAB PO SCH (18:22)
[2016-09-01 00:21] VITALS: BP 129/72
[2016-09-01] MEDS: IBUPROFEN 600 MG (MOTRIN) TAB PO SCH ×3 (00:41→15:03)
[2016-09-01 02:17] VITALS: BP 128/85
[2016-09-01 05:00] VITALS: BP 126/68
[2016-09-01 06:08] VITALS: BP 118/79
[2016-09-01 09:25] VITALS: BP 126/80
[2016-09-01] MEDS ORDERED: IBUP-1773 PO (11:42)
--- NOTE | 2016-09-01 11:44 | Discharge Instructions ---
Discharge Inst-Women's Serv Depart Medications New, Converted or Re-Newed RX: Call to Patients Pharmacy Final Diagnosis Mild pre eclampsia New Medications: Ibuprofen (Ibuprofen) 600 Mg Tablet 600 MG PO Q6HR for 30 Days, TAB Continued Medications: Vit/Fe Fumarate/Fa ( Vitamins Tablet) 1 Each Tablet 1 EACH PO DAILY, TAB Discontinued Medications: Labetalol HCl (Labetalol HCl) 50 Mg/10 Ml Syringe 50 MG IV BID, SYRINGE Follow Up/Instructions Goal/Follow Up: You will need to call and make f/u appt with Dr Delarosa for 6 weeks Patient Instructions: - Make sure that you stay well hydrated for breast feeding Activity Activity: Activity as Tolerated Driving Instructions: You May Drive NO SMOKING: NO SMOKING Nothing Inside Vagina: No Douching, No [place], No Tampons Diet Discharge Diet: No Restrictions Symptoms to Report to : Swelling Increased, Bleeding Excessive, Fever Over 101 Degrees F, Pain/Pressure in Chest, Questions/Concerns, Wt Gain Consecutive Days, Nausea/Vomiting, Shortness of Breath, Weight Gain Over 2 Pounds For Any Problems or Questions: Contact Your Physician Copies To 1: JEFF DELAROSA MD, HOLLY R MD Sep 01, 2016 11:44
--- NOTE | 2016-09-02 20:10 | Discharge Summary ---
Diagnosis/Chief Complaint Date of Admission Aug 30, 2016 at 05:51 Date of Discharge Sep 01, 2016 at 15:20 Admission Diagnosis Admission Diagnosis Mild Pre eclampsia of Term female Discharge Diagnosis see above Chief Complaint/HPI Chief Complaint/HPI IOL for mild pre eclampsia Discharge Summary-Simple/Stand Procedures Discharge Physical Examination Allergies: Coded Allergies: Sulfa (Sulfonamide Antibiotics) (Verified Allergy, Mild, HIVES, 08/30/16) Vitals & I&Os Vital Sign - Last 12Hours Date Time Temp Pulse Resp B/P (MAP) Pulse Ox O2 Delivery O2 Flow Rate FiO2 09/01/16 09:25 98.6 75 20 126/80 Room Air 09/01/16 06:08 100 08/30/16 19:45 10.00 General Appearance: Alert, Oriented X3, Cooperative, No Acute Distress Respiratory: Clear to Auscultation, Normal Air Movement Cardiovascular: Regular Rate, No Murmurs Abdominal: Normal Bowel Sounds, Soft, No Tenderness, Other (fundus below umbilicus) Extremities: Other (2+ pitting edema equal bilaterally, no ttp) Skin: No Rashes Neuro: Normal Gait, Normal Speech, Strength at 5/5 X4 Ext, Sensation Intact, Cranial Nerves 3-12 NL, Reflexes 2+ Psych/Mental Status: Mental Status NL, Mood NL Hospital Course See final discharge diagnosis. Pending Labs None pending Discussion & Recommendations 26 yo F that was admitted for IOL for mild pre eclampsia. Delivered term female while on Magnesium drip. Blood pressures were well controlled during admission. Breast feeding infant. Pain controlled at discharge. Discharge Condition at discharge stable Instructions to patient/family Please see electonic discharge instructions given to patient. Discharge Medications Reviewed and agree with Discharge Medication list on patient's Discharge Instruction sheet Clinical Quality Measures DVT/VTE Risk/Contraindication: Risk Factor Score Per Nursin RFS Level Per Nursing on Admit: 3=High Copy Copies To 1: JEFF PANDEY MD, HOLLY R MD Sep 02, 2016 20:10
--- OUTSIDE RECORDS SUMMARY | 2016-09-23 05:37 | XMS REPORT ---
Author Author JEFF PANDEY [facility] eClinicalWorks Address Unknown Phone Unavailable Care Team Providers Care Microbiology Director Name Role Phone JEFF PANDEY Unavailable Allergies No Known Allergies Problems Problem Type Condition Code Onset Dates Condition Status Problem Oral contraceptive pill surveillance Z30.41 Active Problem Acne, unspecified acne type L70.9 Active Problem care, subsequent in second trimester Z34.82 Active Problem Desire for Z31.9 Active Problem History of hidradenitis suppurativa Z87.2 Active Problem BMI 37.0-37.9, adult Z68.37 Active Medications No Known Medications Results No Known Results Summary Purpose eClinicalWorks Submission
--- OUTSIDE RECORDS SUMMARY | 2016-09-23 05:37 | XMS REPORT ---
Author Author JEFF PANDEY [facility] eClinicalWorks Address Unknown Phone Unavailable Care Team Providers Care Triage Clinician Name Role Phone JEFF PANDEY Unavailable Allergies No Known Allergies Problems Problem Type Condition Code Onset Dates Condition Status Problem Oral contraceptive pill surveillance Z30.41 Active Problem Acne, unspecified acne type L70.9 Active Problem care, subsequent in second trimester Z34.82 Active Problem Desire for Z31.9 Active Assessment care, subsequent in second trimester Z34.82 Active Problem History of hidradenitis suppurativa Z87.2 Active Problem BMI 37.0-37.9, adult Z68.37 Active Medications No Known Medications Procedures Procedure Coding System Code Date INHIBIN A CPT-4 14882 Mar 19, 2016 ASSAY OF ESTRIOL CPT-4 60409 Mar 19, 2016 ALPHA-FETOPROTEIN, SERUM CPT-4 73853 Mar 19, 2016 VENIPUNCT, ROUTINE* CPT-4 52535 Mar 19, 2016 CHORIONIC GONADOTROPIN TEST CPT-4 19754 Mar 19, 2016 Results Name Result Date Reference Range Unit Abnormality Flag ROUTINE VENIPUNCTURE Summary Purpose eClinicalWorks Submission
--- OUTSIDE RECORDS SUMMARY | 2016-09-23 05:37 | XMS REPORT ---
Author Author [facility] Address [address] [place] [address] Care Team Providers Care Atm Technician Name Role Phone NANCY PANDEYY Unavailable PROBLEMS Type Condition ICD9-CM Code [id number] Code Onset Dates Condition Status SNOMED Code Assessment 10 weeks gestation of Z3A.10 13 Feb, 2016 Active 22722711 Problem Oral contraceptive pill surveillance Z30.41 Active 404241312 Problem Acne, unspecified acne type L70.9 Active 16142391 Problem Desire for Z31.9 Active 873640469 Assessment Normal in multigravida in first trimester Z34.81 13 Feb, 2016 Active 46920184 Problem History of hidradenitis suppurativa Z87.2 Active 940544761 Problem BMI 37.0-37.9, adult Z68.37 Active 393070962 ALLERGIES Unknown Allergies SOCIAL HISTORY No smoking Hx information available PLAN OF CARE VITAL SIGNS Height 66 in 2016-02-14 Weight 260.0 lbs 2016-02-14 Heart Rate 84 bpm 2016-02-14 Respiratory Rate 18 2016-02-14 BMI 41.965 kg/m2 2016-02-14 Blood pressure systolic 134 mmHg 2016-02-14 Blood pressure diastolic 69 mmHg 2016-02-14 MEDICATIONS Medication Instructions Dosage Frequency Start Date End Date Duration Status Active RESULTS Name Result Date Reference Range TSH () 2016-02-14 TSH 0.660 0.450-4.500 CBC 2016-02-14 WBC 8.8 3.4-10.8 RBC 4.31 3.77-5.28 Hemoglobin 12.5 11.1-15.9 Hematocrit 37.8 34.0-46.6 MCV 88 79-97 MCH 29.0 26.6-33.0 MCHC 33.1 31.5-35.7 RDW 13.8 12.3-15.4 Platelets 221 150-379 Neutrophils 63 Lymphs 29 Monocytes 7 Eos 1 Basos 0 Neutrophils (Absolute) 5.6 1.4-7.0 Lymphs (Absolute) 2.6 0.7-3.1 Monocytes(Absolute) 0.6 0.1-0.9 Eos (Absolute) 0.0 0.0-0.4 Baso (Absolute) 0.0 0.0-0.2 Immature Granulocytes 0 Immature Grans (Abs) 0.0 0.0-0.1 ANTIBODY SCREEN 2016-02-14 Antibody Screen Negative Negative BLOOD TYPE/RH FACTOR 2016-02-14 ABO Grouping O Rh Factor Positive RUBELLA ANTIBODIES, IgG 2016-02-14 Rubella Antibodies, IgG 10.80 Immune >0.99 CULTURE, URINE 2016-02-14 Urine Culture, Routine Final report Result 1 No growth TRICHOMONAS (IN HOUSE) 2016-02-14 TRICHOMONAS Negative Control + Lot # [id number] Exp date UA LONG DIP (IN HOUSE) 2016-02-14 Lot # [id number] Exp date Clarity clear Color yellow Odor none GLU negative ANURAG negative KET negative SG 1.015 BLO Trace-lysed pH 6.0 Protein negative URO 0.2 NIT negative MAMTA 2+ Lot # Exp date BACTERIAL VAGINOSIS (IN HOUSE) 2016-02-14 RESULTS Negative Control + Lot # [id number] Exp date CULTURE, GENITAL 2016-02-14 Genital Culture, Routine Final report Result 1 GC/CHLAM PROBE (STATE) 2016-02-14 CHLAMYDIA Neg GC Neg SYPHILIS (STATE) 2016-02-14 HIV (STATE) 2016-02-14 HEP B SURFACE ANTIGEN (STATE) HEP B ANTIBODY HEP B ANTIBODY (L) HEP B ANTIBODY (STATE) PROCEDURES Procedure Date Ordered Related Diagnosis Body Site ASSAY THYROID STIM HORMONE Feb 14, 2016 RBC ANTIBODY SCREEN Feb 14, 2016 COMPLETE CBC W/AUTO DIFF WBC Feb 14, 2016 TRICHOMONAS ASSAY W/OPTIC Feb 14, 2016 MACEDO VAG, DNA, DIR PROBE Feb 14, 2016 No Charge Feb 14, 2016 CULTURE, BACTERIA, OTHER Feb 14, 2016 RUBELLA ANTIBODY Feb 14, 2016 BLOOD TYPING, RH (D) Feb 14, 2016 URINALYSIS, AUTO, W/O SCOPE Feb 14, 2016 BLOOD TYPING, ABO Feb 14, 2016 Office Visit, Est Pt., Level 3 Feb 14, 2016 URINE CULTURE/COLONY COUNT Feb 14, 2016 VENIPUNCT, ROUTINE* Feb 14, 2016 IMMUNIZATIONS No Known Immunizations
--- OUTSIDE RECORDS SUMMARY | 2016-09-23 05:37 | XMS REPORT ---
Author Author KAMILA MYLES [employer] Address Unknown Phone Unavailable Care Team Providers Care Tree Thinner Name Role Phone KAMILA MYLES Unavailable Allergies, Adverse Reactions, Alerts Substance Reaction Event Type Sulfamethoxazole hives Drug Allergy Problems Problem Type Condition Code Onset Dates Condition Status Assessment History of hidradenitis suppurativa Z87.2 Active Assessment Acne, unspecified acne type L70.9 Active Assessment Abdominal cramping R10.9 Active Assessment Desire for Z31.9 Active Assessment BMI 37.0-37.9, adult Z68.37 Active Problem Acne, unspecified acne type L70.9 Active Problem History of hidradenitis suppurativa Z87.2 Active Problem Oral contraceptive pill surveillance Z30.41 Active Assessment Irregular menses N92.6 Active Assessment Oral contraceptive pill surveillance Z30.41 Active Problem BMI 37.0-37.9, adult Z68.37 Active Problem Desire for Z31.9 Active Medications Medication Code System Code Instructions Start Date End Date Status Dosage [place] 28 [facility] [address]-17 3-0.03 MG Orally Once a day October 28, 2014 1 tablet [place] [facility] [address]-69 3/2-2/2-3/1 MG Orally Once a day Jul 07, 2015 1 tablet Procedures Procedure Coding System Code Date GLYCATED HEMOGLOBIN TEST CPT-4 67649 Jul 07, 2015 COMPREHEN METABOLIC PANEL CPT-4 27559 Jul 07, 2015 ASSAY THYROID STIM HORMONE CPT-4 23397 Jul 07, 2015 VENIPUNCT, ROUTINE* CPT-4 60071 Jul 07, 2015 URINE TEST CPT-4 70081 Jul 07, 2015 Office Visit, Est Pt., Level 4 CPT-4 31879 Jul 07, 2015 Vital Signs Date/Time: Jul 07, 2015 Temperature 98.0 F Weight 231.5 lbs Height 66 in BMI 37.36 Index Blood Pressure Diastolic 78 mmHg Blood Pressure Systolic 126 mmHg Cardiac Monitoring Heart Rate 78 bpm Results Name Result Date Reference Range Unit Abnormality Flag ROUTINE VENIPUNCTURE TEST, URINE (IN HOUSE) ----Exp date [id number] ----Lot # [id number] ----Control + [id number] ----RESULTS negative [id number] Summary Purpose eClinicalWorks Submission
--- OUTSIDE RECORDS SUMMARY | 2016-09-23 05:37 | XMS REPORT ---
Author Author LIZETH QUIROGA [facility] e[employer] Address Unknown Phone Unavailable Care Team Providers Care 3D Designer Name Role Phone LIZETH QUIROGA CP Unavailable Allergies, Adverse Reactions, Alerts Substance Reaction Event Type Sulfamethoxazole hives Drug Allergy Problems Problem Type Condition Code Onset Dates Condition Status Assessment Nasal congestion R09.81 Active Assessment 19 weeks gestation of Z3A.19 Active Problem Oral contraceptive pill surveillance Z30.41 Active Problem Acne, unspecified acne type L70.9 Active Problem care, subsequent in second trimester Z34.82 Active Problem Desire for Z31.9 Active Assessment Upper respiratory tract infection, unspecified type J06.9 Active Problem History of hidradenitis suppurativa Z87.2 Active Problem BMI 37.0-37.9, adult Z68.37 Active Medications Medication Code System Code Instructions Start Date End Date Status Dosage [facility]ED [facility] [address] not defined Amoxicillin FORMERLY NAMED [facility] [address]-96 500 MG Orally every 12 hrs Apr 10, 2016 Apr 20, 2016 1 capsule Mucinex FORMERLY NAMED [facility] [address]-31 600 MG Orally every 12 hrs Apr 10, 2016 1 tablet as needed Procedures Procedure Coding System Code Date Office Visit, Est Pt., Level 3 CPT-4 65239 Apr 10, 2016 Vital Signs Date/Time: Apr 10, 2016 Cardiac Monitoring Heart Rate 98 bpm Weight 255.6 lbs Height 66 in BMI 41.25 Index Oximetry 100 % Blood Pressure Diastolic 78 mmHg Blood Pressure Systolic 131 mmHg Results No Known Results Summary Purpose eClinicalWorks Submission
--- OUTSIDE RECORDS SUMMARY | 2016-09-23 05:37 | XMS REPORT ---
Author Author ROSARIO FARNKEL Organization [employer] Address Unknown Phone Unavailable Care Team Providers Care Freight Forwarder Name Role Phone ROSARIO FRANKEL CP Unavailable Allergies, Adverse Reactions, Alerts Substance Reaction Event Type Sulfamethoxazole hives Drug Allergy Problems Problem Type Condition Code Onset Dates Condition Status Problem Acne, unspecified acne type L70.9 Active Problem History of hidradenitis suppurativa Z87.2 Active Problem Oral contraceptive pill surveillance Z30.41 Active Assessment Acute cystitis without hematuria N30.00 Active Problem BMI 37.0-37.9, adult Z68.37 Active Problem Desire for Z31.9 Active Medications Medication Code System Code Instructions Start Date End Date Status Dosage Macrobid [facility] [address]-79 100 MG Orally every 12 hrs Jan 07, 2016Jan 1 capsule with food Procedures Procedure Coding System Code Date URINALYSIS, AUTO, W/O SCOPE CPT-4 11978 Jan 07, 2016 Office Visit, Est Pt., Level 3 CPT-4 78784 Jan 07, 2016 Vital Signs Date/Time: Jan 07, 2016 Cardiac Monitoring Heart Rate 80 bpm Weight 267.4 lbs Height 66 in BMI 43.15 Index Blood Pressure Diastolic 72 mmHg Blood Pressure Systolic 122 mmHg Results No Known Results Summary Purpose eClinicalWorks Submission
--- OUTSIDE RECORDS SUMMARY | 2016-09-23 05:38 | XMS REPORT ---
Author Author ALVAREZHAIR Kirk Organization [facility] Address [address] [place] [address] Care Team Providers Care Production Tester Name Role Phone ALVAREZHAIR Kirk Unavailable PROBLEMS Type Condition ICD9-CM Code [id number] Code Onset Dates Condition Status SNOMED Code Assessment Dysuria R30.0 Feb, Active 30759157 Assessment Acute cystitis with hematuria N30.01 Feb, Active 90009031 Problem care, subsequent in second trimester Z34.82 Active 749396242 Problem Oral contraceptive pill surveillance Z30.41 Active 405853019 Problem BMI 37.0-37.9, adult Z68.37 Active 883363152 Problem Desire for Z31.9 Active 027588605 Problem Acne, unspecified acne type L70.9 Active 42096346 Problem History of hidradenitis suppurativa Z87.2 Active 276040131 ALLERGIES Substance Reaction Event Type Date Status Sulfamethoxazole hives Drug Allergy Feb, Active SOCIAL HISTORY No smoking Hx information available PLAN OF CARE VITAL SIGNS Height 66 in 2016-02-27 Weight 251.8 lbs 2016-02-27 Heart Rate 88 bpm 2016-02-27 Respiratory Rate 20 2016-02-27 BMI 40.64 kg/m2 2016-02-27 Blood pressure systolic 130 mmHg 2016-02-27 Blood pressure diastolic 72 mmHg 2016-02-27 MEDICATIONS Medication Instructions Dosage Frequency Start Date End Date Duration Status Macrobid 100 MG Orally every 12 hrs 1 capsule with food 12h Feb, Mar, 7 day(s) Active Active RESULTS Name Result Date Reference Range UA W/CULTURE IF INDICATED (IN HOUSE) 2016-02-27 Lot # [id number] Exp date 07/2016 Clarity slightly cloudy Color light yellow Odor GLU negative ANURAG negative KET trace SG <=1.005 BLO trace-intact pH 6.0 Protein negative URO 0.2 NIT negative MAMTA 1+ Lot # Exp date PROCEDURES Procedure Date Ordered Related Diagnosis Body Site URINALYSIS, AUTO, W/O SCOPE Feb 27, 2016 Office Visit, Est Pt., Level 3 Feb 27, 2016 IMMUNIZATIONS No Known Immunizations
--- OUTSIDE RECORDS SUMMARY | 2016-09-23 05:38 | XMS REPORT ---
Author Author JEFF PANDEY [facility] eClinical[employer] Address Unknown Phone Unavailable Care Team Providers Care Dog Bather Name Role Phone JEFF PANDEY Unavailable Allergies No Known Allergies Problems Problem Type Condition Code Onset Dates Condition Status Assessment 14 weeks gestation of Z3A.14 Active Problem Oral contraceptive pill surveillance Z30.41 Active Problem Acne, unspecified acne type L70.9 Active Problem care, subsequent in second trimester Z34.82 Active Problem Desire for Z31.9 Active Assessment care, subsequent in second trimester Z34.82 Active Problem History of hidradenitis suppurativa Z87.2 Active Problem BMI 37.0-37.9, adult Z68.37 Active Medications Medication Code System Code Instructions Start Date End Date Status Dosage [facility] [address] not defined Procedures Procedure Coding System Code Date Office Visit, Est Pt., Level 2 CPT-4 70784 Mar 14, 2016 URINE-NO MICRO CPT-4 07158 Mar 14, 2016 Vital Signs Date/Time: Mar 14, 2016 Cardiac Monitoring Heart Rate 80 bpm Weight 258 lbs Height 66 in BMI 41.642 Index Blood Pressure Diastolic 70 mmHg Blood Pressure Systolic 110 mmHg Results No Known Results Summary Purpose eClinicalWorks Submission
--- OUTSIDE RECORDS SUMMARY | 2016-09-23 05:38 | XMS REPORT | Continuity of Care Document ---
Author Author [facility] Organization [facility] Address Unknown Phone Unavailable Allergies Active Description Code Type Severity Reaction Onset Reported/Identified Relationship to Patient Clinical Status Yes Sulfa (Sulfonamide Antibiotics) Drug Allergy N/A N/A 05/17/2010 Yes sulfa drug Drug Allergy 05/17/2010 Yes Sulfa (Sulfonamide Antibiotics) [id number] Drug Allergy Mild HIVES 08/30/2016 Medications Problems Date Dx Coded Attending Type Code Diagnosis Diagnosed By 05/17/2010 HALE DO, MARIAELENA K V22.0 , NORMAL FIRST 05/17/2010 GEOFFREY TRAILER STEERER, RYLEE A V22.0 , NORMAL FIRST 05/17/2010 GEOFFREY TRAILER STEERER, RYLEE A V22.0 , NORMAL FIRST 05/17/2010 GEOFFREY TRAILER STEERER, RYLEE A V22.0 , NORMAL FIRST 05/17/2010 HALE DO, MARIAELENA K V22.0 , NORMAL FIRST 05/17/2010 HALE DO, MARIAELENA K V22.0 , NORMAL FIRST 05/17/2010 HALE DO, MARIAELENA K V22.0 , NORMAL FIRST 05/17/2010 HALE DO, MARIAELENA K V22.0 , NORMAL FIRST 05/17/2010 HALE DO, MARIAELENA K V22.0 , NORMAL FIRST 05/17/2010 JEFF PANDEY MD N V22.0 , NORMAL FIRST 05/17/2010 HALE DO, MARIAELENA K V22.0 , NORMAL FIRST 05/17/2010 HALE DO, MARIAELENA K V22.0 , NORMAL FIRST 05/17/2010 JEFF PANDEY MD V22.0 , NORMAL FIRST 05/17/2010 JEFF PANDEY MD V22.0 , NORMAL FIRST 05/17/2010 HALE DO, MARIAELENA K V22.0 , NORMAL FIRST 05/17/2010 HALE DO, MARIAELENA K V22.0 , NORMAL FIRST 05/17/2010 HALE DO, MARIAELENA Herring V22.0 , NORMAL FIRST 05/17/2010 HALE DO, MARIAELENA K V22.0 , NORMAL FIRST 06/02/2010 ALEXIA COCHRAN, MARIAELENA K V04.3 RUBELLA NON-IMMUNE - NEED FOR VACCINATION 06/02/2010 GEOFFREY TRAILER STEERER, RYLEE A V04.3 RUBELLA NON-IMMUNE - NEED FOR VACCINATION 06/02/2010 GEOFFREY TRAILER STEERER, RYLEE A V04.3 RUBELLA NON-IMMUNE - NEED FOR VACCINATION 06/02/2010 GEOFFREY TRAILER STEERER, RYLEE A V04.3 RUBELLA NON-IMMUNE - NEED FOR VACCINATION 06/02/2010 HALE DO, MARIAELENA K V04.3 RUBELLA NON-IMMUNE - NEED FOR VACCINATION 06/02/2010 ALEXIA COCHRAN, MARIAELENA K V04.3 RUBELLA NON-IMMUNE - NEED FOR VACCINATION 06/02/2010 CLEMENTE HALE DOA K V04.3 RUBELLA NON-IMMUNE - NEED FOR VACCINATION 06/02/2010 CLEMENTE HALE DOA K V04.3 RUBELLA NON-IMMUNE - NEED FOR VACCINATION 06/02/2010 ALEXIA COCHRAN, MARIAELENA K V04.3 RUBELLA NON-IMMUNE - NEED FOR VACCINATION 06/02/2010 JEFF PANDEY MD V04.3 RUBELLA NON-IMMUNE - NEED FOR VACCINATION 06/02/2010 MARIAELENA HALE DO K V04.3 RUBELLA NON-IMMUNE - NEED FOR VACCINATION 06/02/2010 CLEMENTE HALE DOA K V04.3 RUBELLA NON-IMMUNE - NEED FOR VACCINATION 06/02/2010 JEFF PANDEY MD V04.3 RUBELLA NON-IMMUNE - NEED FOR VACCINATION 06/02/2010 JEFF PANDEY MD V04.3 RUBELLA NON-IMMUNE - NEED FOR VACCINATION 06/02/2010 ALEXIA COCHRAN, MARIAELENA K V04.3 RUBELLA NON-IMMUNE - NEED FOR VACCINATION 06/02/2010 CLEMENTE HALE DOA K V04.3 RUBELLA NON-IMMUNE - NEED FOR VACCINATION 06/02/2010 ALEXIA COCHRAN, MARIAELENA K V04.3 RUBELLA NON-IMMUNE - NEED FOR VACCINATION 06/02/2010 CLEMENTE HALE DOA K V04.3 RUBELLA NON-IMMUNE - NEED FOR VACCINATION 06/07/2010 CLEMENTE HALE DOA K V04.81 FLU SHOT 06/07/2010 HALE DO, MARIAELENA K V72.31 Mold Breaker Exam, Routine 06/07/2010 HALE DO, MARIAELENA K V74.5 Std Screen 06/07/2010 GEOFFREY TRAILER STEERER, RYLEE A V04.81 FLU SHOT 06/07/2010 GEOFFREY TRAILER STEERER, RYLEE A V72.31 Mold Breaker Exam, Routine 06/07/2010 GEOFFREY TRAILER STEERER, RYLEE A V74.5 Std Screen 06/07/2010 GEOFFREY TRAILER STEERER, RYLEE A V04.81 FLU SHOT 06/07/2010 GEOFFREY TRAILER STEERER, RYLEE A V72.31 Mold Breaker Exam, Routine 06/07/2010 GEOFFREY TRAILER STEERER, RYLEE A V74.5 Std Screen 06/07/2010 GEOFFREY TRAILER STEERER, RYLEE A V04.81 FLU SHOT 06/07/2010 GEOFFREY TRAILER STEERER, RYLEE A V72.31 Mold Breaker Exam, Routine 06/07/2010 GEOFFREY TRAILER STEERER, RYLEE A V74.5 Std Screen 06/07/2010 HALE DO, MARIAELENA K V04.81 FLU SHOT 06/07/2010 HALE DO, MARIAELENA K V72.31 Mold Breaker Exam, Routine 06/07/2010 HALE DO, MARIAELENA K V74.5 Std Screen 06/07/2010 HALE DO, MARIAELENA K V04.81 FLU SHOT 06/07/2010 HALE DO, MARIAELENA K V72.31 Mold Breaker Exam, Routine 06/07/2010 HALE DO, MARIAELENA K V74.5 Std Screen 06/07/2010 HALE DO, MARIAELENA K V04.81 FLU SHOT 06/07/2010 HALE DO, MARIAELENA K V72.31 Mold Breaker Exam, Routine 06/07/2010 HALE DO, MARIAELENA K V74.5 Std Screen 06/07/2010 HALE DO, MARIAELENA K V04.81 FLU SHOT 06/07/2010 HALE DO, MARIAELENA K V72.31 Mold Breaker Exam, Routine 06/07/2010 HALE DO, MARIAELENA K V74.5 Std Screen 06/07/2010 HALE DO, MARIAELENA K V04.81 FLU SHOT 06/07/2010 HALE DO, MARIAELENA K V72.31 Mold Breaker Exam, Routine 06/07/2010 HALE DO, MARIAELENA K V74.5 Std Screen 06/07/2010 DANNIE GRUBER, JEFF Rinaldi V04.81 FLU SHOT 06/07/2010 DANNIE GRUBER, JEFF Rinaldi V72.31 Mold Breaker Exam, Routine 06/07/2010 DANNIE GRUBER, JEFF Rinaldi V74.5 Std Screen 06/07/2010 HALE DO, MARIAELENA K V04.81 FLU SHOT 06/07/2010 HALE DO, MARIAELENA K V72.31 Mold Breaker Exam, Routine 06/07/2010 HALE DO, MARIAELENA K V74.5 Std Screen 06/07/2010 HALE DO, MARIAELENA K V04.81 FLU SHOT 06/07/2010 HALE DO, MARIAELENA K V72.31 Mold Breaker Exam, Routine 06/07/2010 HALE DO, MARIAELENA K V74.5 Std Screen 06/07/2010 DANNIE GRUBER, JEFF Rinaldi V04.81 FLU SHOT 06/07/2010 DANNIE GRUBER, JEFF Rinaldi V72.31 Mold Breaker Exam, Routine 06/07/2010 DANNIE GRUBER, JEFF Rinaldi V74.5 Std Screen 06/07/2010 DANNIE GRUBER, JEFF Rinaldi V04.81 FLU SHOT 06/07/2010 DANNIE GRUBER, JEFF Rinaldi V72.31 Mold Breaker Exam, Routine 06/07/2010 DANNIE GRUBER, JEFF Rinaldi V74.5 Std Screen 06/07/2010 HALE DO, MARIAELENA K V04.81 FLU SHOT 06/07/2010 HALE DO, MARIAELENA K V72.31 Mold Breaker Exam, Routine 06/07/2010 HALE DO, MARIAELENA K V74.5 Std Screen 06/07/2010 HALE DO, MARIAELENA K V04.81 FLU SHOT 06/07/2010 HALE DO, MARIAELENA K V72.31 Mold Breaker Exam, Routine 06/07/2010 HALE DO, MARIAELENA K V74.5 Std Screen 06/07/2010 HALE DO, MARIAELENA K V04.81 FLU SHOT 06/07/2010 HALE DO, MARIAELENA K V72.31 Mold Breaker Exam, Routine 06/07/2010 HALE DO, MARIAELENA K V74.5 Std Screen 06/07/2010 HALE DO, MARIAELENA K V04.81 FLU SHOT 06/07/2010 HALE DO, MARIAELENA K V72.31 Mold Breaker Exam, Routine 06/07/2010 HALE DO, MARIAELENA K V74.5 Std Screen 12/05/2010 Ot V22.2 PREG STATE, INCIDENTAL 12/05/2010 Ot V71.4 OBSERV-ACCIDENT NEC 12/10/2010 Ot 646.83 PREG COMPL NEC-ANTEPART 12/10/2010 Ot 789.00 ABDOMINAL PAIN, UNSPECIFIED SITE 12/11/2010 Ot 380.10 INFEC OTITIS EXTERNA NOS 12/11/2010 Ot 388.70 OTALGIA NOS 12/18/2010 Ot 644.13 THREAT LABOR NEC-ANTEPAR 12/19/2010 Ot 644.13 THREAT LABOR NEC-ANTEPAR 12/21/2010 Ot 285.9 ANEMIA NOS 12/21/2010 Ot 648.22 ANEMIA-DELIVERED W P/P 12/21/2010 Ot 663.31 CORD ENTANGLE NEC-DELIV 12/21/2010 Ot 664.01 DEL W 1 DEG LACERAT-DEL 12/21/2010 Ot V27.0 DELIVER-SINGLE LIVEBORN 03/20/2011 MARIAELENA HALE DO V24.2 visit for: exam 03/20/2011 MARIAELENA HALE DO V25.01 Oral Contraceptives 03/20/2011 MARIAELENA HALE DO V25.09 Gynecologic Services Contraceptive General Counseling 03/20/2011 RYLEE HALE APRN V24.2 visit for: exam 03/20/2011 RYLEE HALE APRN V25.01 Oral Contraceptives 03/20/2011 RYLEE HALE APRN V25.09 Gynecologic Services Contraceptive General Counseling 03/20/2011 RYLEE HALE APRN V24.2 visit for: exam 03/20/2011 RYLEE HALE APRN V25.01 Oral Contraceptives 03/20/2011 RYLEE HALE APRN A V25.09 Gynecologic Services Contraceptive General Counseling 03/20/2011 RYLEE HALE APRN V24.2 visit for: exam 03/20/2011 RYLEE HALE APRN V25.01 Oral Contraceptives 03/20/2011 RYLEE HALE APRN A V25.09 Gynecologic Services Contraceptive General Counseling 03/20/2011 MARIAELENA HALE DO V24.2 VISIT FOR: EXAM 03/20/2011 MARIAELENA HALE DO V25.01 ORAL CONTRACEPTIVES 03/20/2011 MARIAELENA HALE DO V25.09 GYNECOLOGIC SERVICES CONTRACEPTIVE GENERAL COUNSELING 03/20/2011 HALE DO, MARIAELENA K V24.2 VISIT FOR: EXAM 03/20/2011 HALE DO MARIAELENA K V25.01 ORAL CONTRACEPTIVES 03/20/2011 HALE DO MARIAELENA K V25.09 GYNECOLOGIC SERVICES CONTRACEPTIVE GENERAL COUNSELING 03/20/2011 HALE DO MARIAELENA K V24.2 VISIT FOR: EXAM 03/20/2011 HALE DO MARIAELENA K V25.01 ORAL CONTRACEPTIVES 03/20/2011 HALE DO MARIAELENA K V25.09 GYNECOLOGIC SERVICES CONTRACEPTIVE GENERAL COUNSELING 03/20/2011 HALE DO MARIAELENA K V24.2 VISIT FOR: EXAM 03/20/2011 HALE DO MARIAELENA K V25.01 ORAL CONTRACEPTIVES 03/20/2011 HALE DO MARIAELENA K V25.09 GYNECOLOGIC SERVICES CONTRACEPTIVE GENERAL COUNSELING 03/20/2011 ALEXIA COCHRAN MARIAELENA K V24.2 VISIT FOR: EXAM 03/20/2011 HALE DO MARIAELENA K V25.01 ORAL CONTRACEPTIVES 03/20/2011 HALE DO MARIAELENA K V25.09 GYNECOLOGIC SERVICES CONTRACEPTIVE GENERAL COUNSELING 03/20/2011 JEFF PANDEY MD V24.2 VISIT FOR: EXAM 03/20/2011 JEFF PANDEY MD V25.01 ORAL CONTRACEPTIVES 03/20/2011 JEFF PANDEY MD V25.09 GYNECOLOGIC SERVICES CONTRACEPTIVE GENERAL COUNSELING 03/20/2011 CLEMENTE HALE DOA K V24.2 VISIT FOR: EXAM 03/20/2011 CLEMENTE HALE DOA K V25.01 ORAL CONTRACEPTIVES 03/20/2011 HALE DO MARIAELENA K V25.09 GYNECOLOGIC SERVICES CONTRACEPTIVE GENERAL COUNSELING 03/20/2011 CLEMENTE HALE DOA K V24.2 VISIT FOR: EXAM 03/20/2011 CLEMENTE HALE DOA K V25.01 ORAL CONTRACEPTIVES 03/20/2011 HALE CLEMENTE COCHRANA K V25.09 GYNECOLOGIC SERVICES CONTRACEPTIVE GENERAL COUNSELING 03/20/2011 JEFF PANDEY MD N V24.2 VISIT FOR: EXAM 03/20/2011 JEFF PANDEY MD V25.01 ORAL CONTRACEPTIVES 03/20/2011 JEFF PANDEY MD N V25.09 GYNECOLOGIC SERVICES CONTRACEPTIVE GENERAL COUNSELING 03/20/2011 JEFF PANDEY MD N V24.2 VISIT FOR: EXAM 03/20/2011 JEFF PANDEY MD V25.01 ORAL CONTRACEPTIVES 03/20/2011 DANNIE GRUBER, JEFF Rinaldi V25.09 GYNECOLOGIC SERVICES CONTRACEPTIVE GENERAL COUNSELING 03/20/2011 HALE DO, MARIAELENA K V24.2 VISIT FOR: EXAM 03/20/2011 HALE DO, MARIAELENA K V25.01 ORAL CONTRACEPTIVES 03/20/2011 HLAE DO, MARIAELENA K V25.09 GYNECOLOGIC SERVICES CONTRACEPTIVE GENERAL COUNSELING 03/20/2011 HALE DO, MARIAELENA K V24.2 VISIT FOR: EXAM 03/20/2011 HALE DO, MARIAELENA K V25.01 ORAL CONTRACEPTIVES 03/20/2011 HALE DO, MARIAELENA K V25.09 GYNECOLOGIC SERVICES CONTRACEPTIVE GENERAL COUNSELING 03/20/2011 HALE DO, MARIAELENA K V24.2 VISIT FOR: EXAM 03/20/2011 HALE DO, MARIAELENA K V25.01 ORAL CONTRACEPTIVES 03/20/2011 HALE DO, MARIAELENA K V25.09 GYNECOLOGIC SERVICES CONTRACEPTIVE GENERAL COUNSELING 03/20/2011 HALE DO, MARIAELENA K V24.2 visit for: exam 03/20/2011 HALE DO MARIAELENA K V25.01 Oral Contraceptives 03/20/2011 HALE DO, MARIAELENA K V25.09 Gynecologic Services Contraceptive General Counseling 03/21/2011 Ot 599.0 URIN TRACT INFECTION NOS 03/21/2011 Ot 788.1 DYSURIA 12/13/2011 CLEMENTE HALE DOA K 919.4 INSECT BITE NONVENOMOUS OF OTHER MULTIPLE AND UNSPECIFIED SITES WITHOUT INFECTION 12/13/2011 WILFRIDO HALE APRNIDI A 919.4 INSECT BITE NONVENOMOUS OF OTHER MULTIPLE AND UNSPECIFIED SITES WITHOUT INFECTION 12/13/2011 WILFRIDO HALE APRNIDI A 919.4 INSECT BITE NONVENOMOUS OF OTHER MULTIPLE AND UNSPECIFIED SITES WITHOUT INFECTION 12/13/2011 WILFRIDO HALE APRNIDI A 919.4 INSECT BITE NONVENOMOUS OF OTHER MULTIPLE AND UNSPECIFIED SITES WITHOUT INFECTION 12/13/2011 CLEMENTE HALE DOA K 919.4 INSECT BITE NONVENOMOUS OF OTHER MULTIPLE AND UNSPECIFIED SITES WITHOUT INFECTION 12/13/2011 CLEMENTE HALE DOA K 919.4 INSECT BITE NONVENOMOUS OF OTHER MULTIPLE AND UNSPECIFIED SITES WITHOUT INFECTION 12/13/2011 CLEMENTE HALE DOA K 919.4 INSECT BITE NONVENOMOUS OF OTHER MULTIPLE AND UNSPECIFIED SITES WITHOUT INFECTION 12/13/2011 HALE DO, MARIAELENA K 919.4 INSECT BITE NONVENOMOUS OF OTHER MULTIPLE AND UNSPECIFIED SITES WITHOUT INFECTION 12/13/2011 HALE DO, MARIAELENA K 919.4 INSECT BITE NONVENOMOUS OF OTHER MULTIPLE AND UNSPECIFIED SITES WITHOUT INFECTION 12/13/2011 JEFF PANDEY MD N 919.4 INSECT BITE NONVENOMOUS OF OTHER MULTIPLE AND UNSPECIFIED SITES WITHOUT INFECTION 12/13/2011 HALE DO, MARIAELENA K 919.4 INSECT BITE NONVENOMOUS OF OTHER MULTIPLE AND UNSPECIFIED SITES WITHOUT INFECTION 12/13/2011 HALE DO, MARIAELENA K 919.4 INSECT BITE NONVENOMOUS OF OTHER MULTIPLE AND UNSPECIFIED SITES WITHOUT INFECTION 12/13/2011 JEFF PANDEY MD 919.4 INSECT BITE NONVENOMOUS OF OTHER MULTIPLE AND UNSPECIFIED SITES WITHOUT INFECTION 12/13/2011 JEFF PANDEY MD 919.4 INSECT BITE NONVENOMOUS OF OTHER MULTIPLE AND UNSPECIFIED SITES WITHOUT INFECTION 12/13/2011 HALE DO, MARIAELENA K 919.4 INSECT BITE NONVENOMOUS OF OTHER MULTIPLE AND UNSPECIFIED SITES WITHOUT INFECTION 12/13/2011 HALE DO, MARIAELENA K 919.4 INSECT BITE NONVENOMOUS OF OTHER MULTIPLE AND UNSPECIFIED SITES WITHOUT INFECTION 12/13/2011 HALE DO, MARIAELENA K 919.4 INSECT BITE NONVENOMOUS OF OTHER MULTIPLE AND UNSPECIFIED SITES WITHOUT INFECTION 12/13/2011 HALE DO, MARIAELENA K 919.4 INSECT BITE NONVENOMOUS OF OTHER MULTIPLE AND UNSPECIFIED SITES WITHOUT INFECTION 04/18/2012 HALE DO, MARIAELENA K V72.31 AIR CONDITIONING EQUIPMENT MECHANIC EXAM, ROUTINE 04/18/2012 GEOFFREY TRAILER STEERER, RYLEE A V72.31 AIR CONDITIONING EQUIPMENT MECHANIC EXAM, ROUTINE 04/18/2012 GEOFFREY TRAILER STEERER, RYLEE A V72.31 AIR CONDITIONING EQUIPMENT MECHANIC EXAM, ROUTINE 04/18/2012 GEOFFREY TRAILER STEERER, RYLEE A V72.31 AIR CONDITIONING EQUIPMENT MECHANIC EXAM, ROUTINE 04/18/2012 HALE DO, MARIAELENA K V72.31 AIR CONDITIONING EQUIPMENT MECHANIC EXAM, ROUTINE 04/18/2012 HALE DO, MARIAELENA K V72.31 AIR CONDITIONING EQUIPMENT MECHANIC EXAM, ROUTINE 04/18/2012 HALE DO, MARIAELENA K V72.31 AIR CONDITIONING EQUIPMENT MECHANIC EXAM, ROUTINE 04/18/2012 HALE DO, MARIAELENA K V72.31 AIR CONDITIONING EQUIPMENT MECHANIC EXAM, ROUTINE 04/18/2012 HALE DO, MARIAELENA K V72.31 AIR CONDITIONING EQUIPMENT MECHANIC EXAM, ROUTINE 04/18/2012 DANNIE GRUBER, JEFF Rinaldi V72.31 AIR CONDITIONING EQUIPMENT MECHANIC EXAM, ROUTINE 04/18/2012 HALE DO, MARIAELENA K V72.31 AIR CONDITIONING EQUIPMENT MECHANIC EXAM, ROUTINE 04/18/2012 HALE DO, MARIAELENA K V72.31 AIR CONDITIONING EQUIPMENT MECHANIC EXAM, ROUTINE 04/18/2012 DANNIE GRUBER, JEFF Rinaldi V72.31 AIR CONDITIONING EQUIPMENT MECHANIC EXAM, ROUTINE 04/18/2012 DANNIE GRUBER, JEFF Rinaldi V72.31 AIR CONDITIONING EQUIPMENT MECHANIC EXAM, ROUTINE 04/18/2012 HALE DO, MARIAELENA K V72.31 AIR CONDITIONING EQUIPMENT MECHANIC EXAM, ROUTINE 04/18/2012 HALE DO, MARIAELENA K V72.31 AIR CONDITIONING EQUIPMENT MECHANIC EXAM, ROUTINE 04/18/2012 HALE DO, MARIAELENA K V72.31 AIR CONDITIONING EQUIPMENT MECHANIC EXAM, ROUTINE 04/18/2012 HALE DO, MARIAELENA K V72.31 AIR CONDITIONING EQUIPMENT MECHANIC EXAM, ROUTINE 06/02/2012 Ot 787.99 OTHER GI SYSTEM SYMPTOMS 06/06/2012 HALE DO, MARIAELENA K 564.00 CONSTIPATION 06/06/2012 HALE DO, MARIAELENA K 569.3 RECTAL BLEEDING 06/06/2012 HALE DO, MARIAELENA K 787.91 DIARRHEA 06/06/2012 GEOFFREY TRAILER STEERER, RYLEE A 564.00 CONSTIPATION 06/06/2012 GEOFFREY TRAILER STEERER, RYLEE A 569.3 RECTAL BLEEDING 06/06/2012 GEOFFREY TRAILER STEERER, RYLEE A 787.91 DIARRHEA 06/06/2012 GEOFFREY TRAILER STEERER, RYLEE A 564.00 CONSTIPATION 06/06/2012 GEOFFREY TRAILER STEERER, RYLEE A 569.3 RECTAL BLEEDING 06/06/2012 GEOFFREY TRAILER STEERER, RYLEE A 787.91 DIARRHEA 06/06/2012 GEOFFREY TRAILER STEERER, RYLEE A 564.00 CONSTIPATION 06/06/2012 GEOFFREY TRAILER STEERER, RYLEE A 569.3 RECTAL BLEEDING 06/06/2012 GEOFFREY TRAILER STEERER, RYLEE A 787.91 DIARRHEA 06/06/2012 HALE DO, MARIAELENA K 564.00 CONSTIPATION 06/06/2012 HALE DO, MARIAELENA K 569.3 RECTAL BLEEDING 06/06/2012 HALE DO, MARIAELENA K 787.91 DIARRHEA 06/06/2012 HALE DO, MARIAELENA K 564.00 CONSTIPATION 06/06/2012 HALE DO, MARIAELENA K 569.3 RECTAL BLEEDING 06/06/2012 HALE DO, MARIAELENA K 787.91 DIARRHEA 06/06/2012 HALE DO, MARIAELENA K 564.00 CONSTIPATION 06/06/2012 HALE DO, MARIAELENA K 569.3 RECTAL BLEEDING 06/06/2012 HALE DO, MARIAELENA K 787.91 DIARRHEA 06/06/2012 HALE DO, MARIAELENA K 564.00 CONSTIPATION 06/06/2012 HALE DO, MARIAELENA K 569.3 RECTAL BLEEDING 06/06/2012 HALE DO, MARIAELENA K 787.91 DIARRHEA 06/06/2012 HALE DO, MARIAELENA K 564.00 CONSTIPATION 06/06/2012 HALE DO, MARIAELENA K 569.3 RECTAL BLEEDING 06/06/2012 HALE DO, MARIAELENA K 787.91 DIARRHEA 06/06/2012 JEFF PANDEY MD 564.00 CONSTIPATION 06/06/2012 JEFF PANDEY MD 569.3 RECTAL BLEEDING 06/06/2012 JEFF PANDEY MD 78Ernestine.91 DIARRHEA 06/06/2012 HALE DO, MARIAELENA K 564.00 CONSTIPATION 06/06/2012 HALE DO, MARIAELENA K 569.3 RECTAL BLEEDING 06/06/2012 HALE DO, MARIAELENA K 787.91 DIARRHEA 06/06/2012 HALE DO, MARIAELENA K 564.00 CONSTIPATION 06/06/2012 HALE DO, MARIAELENA K 569.3 RECTAL BLEEDING 06/06/2012 HALE DO, MARIAELENA K 787.91 DIARRHEA 06/06/2012 JEFF PANDEY MD 564.00 CONSTIPATION 06/06/2012 JEFF PANDEY MD 569.3 RECTAL BLEEDING 06/06/2012 JEFF PANDEY MD 787.91 DIARRHEA 06/06/2012 JEFF PANDEY MD 564.00 CONSTIPATION 06/06/2012 JEFF PANDEY MD 569.3 RECTAL BLEEDING 06/06/2012 JEFF PANDEY MD 78Ernestine.91 DIARRHEA 06/06/2012 HALE DO, MARIAELENA K 564.00 CONSTIPATION 06/06/2012 HALE DO, MARIAELENA K 569.3 RECTAL BLEEDING 06/06/2012 HALE DO, MARIAELENA K 787.91 DIARRHEA 06/06/2012 HALE DO, MARIAELENA K 564.00 CONSTIPATION 06/06/2012 HALE DO, MARIAELENA K 569.3 RECTAL BLEEDING 06/06/2012 HALE DO, MARIAELENA K 787.91 DIARRHEA 06/06/2012 HALE DO, MARIAELENA K 564.00 CONSTIPATION 06/06/2012 HALE DO, MARIAELENA K 569.3 RECTAL BLEEDING 06/06/2012 HALE DO, MARIAELENA K 787.91 DIARRHEA 02/04/2013 GEOFFREY TRAILER STEERER, RYLEE A V72.42 TEST POSITIVE RESULT 02/04/2013 GEOFFREY TRAILER STEERER, RYLEE A V72.42 TEST POSITIVE RESULT 02/04/2013 GEOFFREY TRAILER STEERER, RYLEE A V72.42 TEST POSITIVE RESULT 02/04/2013 HALE DO, MARIAELENA K V72.42 TEST POSITIVE RESULT 02/04/2013 HALE DO, MARIAELENA K V72.42 TEST POSITIVE RESULT 02/04/2013 HALE DO, MARIAELENA K V72.42 TEST POSITIVE RESULT 02/04/2013 HALE DO, MARIAELENA K V72.42 TEST POSITIVE RESULT 02/04/2013 HALE DO, MARIAELENA K V72.42 TEST POSITIVE RESULT 02/04/2013 JEFF PANDEY MD V72.42 TEST POSITIVE RESULT 02/04/2013 HALE DO, MARIAELENA K V72.42 TEST POSITIVE RESULT 02/04/2013 HALE DO, MARIAELENA K V72.42 TEST POSITIVE RESULT 02/04/2013 JEFF PANDEY MD V72.42 TEST POSITIVE RESULT 02/04/2013 JEFF PANDEY MD V72.42 TEST POSITIVE RESULT 02/04/2013 HALE DO, MARIAELENA K V72.42 TEST POSITIVE RESULT 02/04/2013 HALE DO, MARIAELENA K V72.42 TEST POSITIVE RESULT 02/04/2013 HALE DO, MARIAELENA K V72.42 TEST POSITIVE RESULT 03/02/2013 GEOFFREY TRAILER STEERER, RYLEE A V22.1 , NORMAL OTHER 03/02/2013 GEOFFREY TRAILER STEERER, RYLEE A V22.1 , NORMAL OTHER 03/02/2013 GEOFFREY TRAILER STEERER, RYLEE A V22.1 , NORMAL OTHER 03/02/2013 HALE DO, MARIAELENA K V22.1 , NORMAL OTHER 03/02/2013 HALE DO, MARIAELENA K V22.1 , NORMAL OTHER 03/02/2013 HALE DO, MARIAELENA K V22.1 , NORMAL OTHER 03/02/2013 HALE DO, MARIAELENA K V22.1 , NORMAL OTHER 03/02/2013 HALE DO, MARIAELENA K V22.1 , NORMAL OTHER 03/02/2013 JEFF PANDEY MD V22.1 , NORMAL OTHER 03/02/2013 HALE DO, MARIAELENA K V22.1 , NORMAL OTHER 03/02/2013 HALE DO, MARIAELENA K V22.1 , NORMAL OTHER 03/02/2013 JEFF PANDEY MD V22.1 , NORMAL OTHER 03/02/2013 JEFF PANDEY MD V22.1 , NORMAL OTHER 03/02/2013 HALE DO, MARIAELENA K V22.1 , NORMAL OTHER 03/02/2013 HALE DO, MARIAELENA K V22.1 , NORMAL OTHER 03/02/2013 HALE DO, MARIAELENA K V22.1 , NORMAL OTHER 07/13/2013 HALE DO, MARIAELENA K V06.1 TDAP DX 07/13/2013 HALE DO, MARIAELENA K V06.1 TDAP DX 07/13/2013 JEFF PANDEY MD V06.1 TDAP DX 07/13/2013 HALE DO, MARIAELENA K V06.1 TDAP DX 07/13/2013 HALE DO, MARIAELENA K V06.1 TDAP DX 07/13/2013 JEFF PANDEY MD N V06.1 TDAP DX 07/13/2013 JEFF PANDEY MD V06.1 TDAP DX 07/13/2013 HALE DO, MARIAELENA K V06.1 TDAP DX 07/13/2013 HALE DO, MARIAELENA K V06.1 TDAP DX 07/13/2013 HALE DO, MARIAELENA K V06.1 TDAP DX 09/09/2013 JEFF PANDEY MD 648.80 ABNORMAL GLUCOSE TOLERANCE OF MOTHER COMPLICATING CHILDBIRTH OR THE PUERPERIUM UNSPECIFIED TO EPISODE OF CARE 09/09/2013 JEFF PANDEY MD 648.80 ABNORMAL GLUCOSE TOLERANCE OF MOTHER COMPLICATING CHILDBIRTH OR THE PUERPERIUM UNSPECIFIED TO EPISODE OF CARE 09/09/2013 CLEMENTE HALE DOA Nevaeh 648.80 ABNORMAL GLUCOSE TOLERANCE OF MOTHER COMPLICATING CHILDBIRTH OR THE PUERPERIUM UNSPECIFIED TO EPISODE OF CARE 09/09/2013 MARIAELENA HALE DO 648.80 ABNORMAL GLUCOSE TOLERANCE OF MOTHER COMPLICATING CHILDBIRTH OR THE PUERPERIUM UNSPECIFIED TO EPISODE OF CARE 09/09/2013 MARIAELENA HALE DO 648.80 ABNORMAL GLUCOSE TOLERANCE OF MOTHER COMPLICATING CHILDBIRTH OR THE PUERPERIUM UNSPECIFIED TO EPISODE OF CARE 10/05/2013 MARIAELENA HALE DO, Ot 656.61 EXCESS GRTH-DELIV 10/05/2013 MARIAELENA HALE DO, Ot 656.81 FET/PLAC PROB NEC-DELIV 10/05/2013 MARIAELENA HALE DO, Ot 659.71 ABN DEL FET HT RT/RHYTHM,W OR W/O MENTIO 10/05/2013 MARIAELENA HALE DO, Ot 663.31 CORD ENTANGLE NEC-DELIV 10/05/2013 MARIAELENA HALE DO, Ot V27.0 DELIVER-SINGLE LIVEBORN 11/16/2013 MARIAELENA HALE DO V24.2 F/U, ROUTINE 11/16/2013 MARIAELENA HALE DO V25.01 CONTRACEPTION - ORAL CONTRACEPTION 04/16/2014 MARIAELENA HALE DO Ot V28.81 04/16/2014 MARIAELENA HALE DO, Ot V22.1 04/19/2016 RYLEE HALE APRN Ot V22.1 SUPERVIS OTH NORMAL PREG 04/19/2016 MARIAELENA HALE DO Ot V28.81 ENCOUNTER FOR ANATOMIC SURVEY 04/19/2016 MARIAELENA HALE DO Ot V22.1 SUPERVIS OTH NORMAL PREG 04/20/2016 JEFF PANDEY MD Ot Z34.82 ENCOUNTER FOR SUPRVSN OF NORMAL PREGNANC 05/04/2016 JEFF PANDEY MD Ot Z34.82 ENCOUNTER FOR SUPRVSN OF NORMAL PREGNANC 05/17/2016 JEFF PANDEY MD Ot Z34.82 ENCOUNTER FOR SUPRVSN OF NORMAL PREGNANC 05/17/2016 JEFF PANDEY MD Ot Z36 ENCOUNTER FOR SCREENING OF MOT 05/17/2016 JEFF PANDEY MD Ot Z34.82 ENCOUNTER FOR SUPRVSN OF NORMAL PREGNANC 05/17/2016 JEFF PNADEY MD, Ot Z36 ENCOUNTER FOR SCREENING OF MOT 05/17/2016 JEFF PANDEY MD, Ot Z34.82 ENCOUNTER FOR SUPRVSN OF NORMAL PREGNANC 05/30/2016 JEFF PANDEY MD, Ot Z34.82 ENCOUNTER FOR SUPRVSN OF NORMAL PREGNANC 05/30/2016 JEFF PANDEY MD, Ot Z36 ENCOUNTER FOR SCREENING OF MOT 06/07/2016 JEFF PANDEY MD, Ot O13.2 GESTATNL HTN W/O SIGNIFICANT PROTEINURIA 06/07/2016 JEFF PANDEY MD, Ot Z3A.26 26 WEEKS GESTATION OF 06/28/2016 JEFF PANDEY MD, Ot O13.3 GESTATIONAL HTN W/O SIGNIFICANT PROTEINU 06/28/2016 JEFF PANDEY MD, Ot Z3A.30 30 WEEKS GESTATION OF 06/28/2016 JEFF PANDEY MD, Ot O13.3 GESTATIONAL HTN W/O SIGNIFICANT PROTEINU 06/28/2016 JEFF PANDEY MD, Ot Z3A.30 30 WEEKS GESTATION OF 06/28/2016 JEFF PANDEY MD, Ot O13.3 GESTATIONAL HTN W/O SIGNIFICANT PROTEINU 06/28/2016 JEFF PANDEY MD, Ot Z3A.30 30 WEEKS GESTATION OF 06/29/2016 JEFF PANDEY MD, Ot O13.3 GESTATIONAL HTN W/O SIGNIFICANT PROTEINU 06/29/2016 JEFF PANDEY MD, Ot Z3A.30 30 WEEKS GESTATION OF 07/03/2016 JEFF PANDEY MD, Ot O14.93 UNSPECIFIED PRE-ECLAMPSIA, THIRD TRIMEST 07/03/2016 JEFF PANDEY MD Ot Z3A.30 30 WEEKS GESTATION OF 07/04/2016 JEFF PANDEY MD, Ot O14.93 UNSPECIFIED PRE-ECLAMPSIA, THIRD TRIMEST 07/04/2016 JEFF PANDEY MD, Ot Z3A.30 30 WEEKS GESTATION OF 07/04/2016 JEFF PANDEY MD, Ot O14.93 UNSPECIFIED PRE-ECLAMPSIA, THIRD TRIMEST 07/04/2016 JEFF PANDEY MD, Ot Z3A.30 30 WEEKS GESTATION OF 07/05/2016 JEFF PANDEY MD, Ot O13.3 GESTATIONAL HTN W/O SIGNIFICANT PROTEINU 07/05/2016 JEFF PANDEY MD, Ot Z3A.30 30 WEEKS GESTATION OF 09/01/2016 JEFF PANDEY MD, Ot O14.03 MILD TO MODERATE PRE-ECLAMPSIA, THIRD TR 09/01/2016 JEFF PANDEY MD, Ot Z37.0 SINGLE LIVE 09/01/2016 JEFF PANDEY MD, Ot Z3A.38 38 WEEKS GESTATION OF Procedures Code Description Performed By Performed On 73.59 MANUAL ASSIST DELIV NEC 12/19/2010 75.69 REPAIR OB LACERATION NEC 12/19/2010 99.04 PACKED CELL TRANSFUSION 12/21/2010 31627 URINE TEST (IN-HOUSE) 04/18/2012 79581 PAP SMEAR 2011 Q0091 PAP SMEAR OBTAIN SMEAR 04/18/2012 90928 HEMOCCULT 2012 38996 URINE TEST (IN-HOUSE) 02/04/2013 06388 ROUTINE VENIPUNCTURE 03/02/2013 41150 US OB - EARLY <14 WEEKS 03/02/2013 07847 SYPHILLIS-STATE LAB 03/02/2013 14058 ANTIBODY SCREEN (order) 03/02/2013 52024 UA OB DIP 2012 94908 CBC 03/03/2013 51107 TSH 03/03/2013 29486 BLOOD TYPE/Rh FACTOR 03/03/2013 [id number] ANTIBODY SCREEN (RESULT ONLY) 03/03/2013 73841 HIV ANTIBODIES (RML) 03/04/2013 15965 RUBELLA ANTIBODY, IGG 03/04/2013 93366 CULTURE URINE 07/2012 17908 GC/CHLAM PROBE (STATE) 03/30/2013 10555 UA OB DIP 2012 74572 TRICHOMONAS (IN-HOUSE) 03/30/2013 41631 CULTURE UROGENITAL 04/01/2013 02591 UA OB DIP 2012 13029 US OB - COMPLETE >14 WEEKS 05/06/2013 TETRA TETRA SCREEN 09/2012 05184 UA OB DIP 2012 80285 ROUTINE VENIPUNCTURE 06/29/2013 95609 UA OB DIP 2013 66544 US OB - FOLLOW UP 06/29/2013 77560 CBC 06/29/2013 51317 GLUCOSE ISIDRO 1 HOUR 06/29/2013 21298 UA OB DIP 2013 40762 UA OB DIP 2013 12943 UA OB DIP 2013 71766 UA OB DIP 2013 79687 UA OB DIP 2013 60254 ROUTINE VENIPUNCTURE 09/09/2013 66739 UA OB DIP 2013 62240 GLUCOSE FINGER STICK 09/09/2013 97606 CULTURE GROUP B STREP VAG 09/09/2013 18491 HEP B SURFACE ANTIGEN (RML) 09/09/2013 00015 UA OB DIP 2013 16059 UA OB DIP 2013 20819 UA OB DIP 2013 73.59 MANUAL ASSIST DELIV NEC 10/04/2013 56654 TEST, URINE (IN-HOUSE) 11/16/2013 [id number] DELIVERY OF PRODUCTS OF CONCEPTION, EXTE 08/30/2016 Results Test Result Range Complete blood count (CBC) with automated white blood cell (WBC) differential - 06/06/16 18:15 Blood leukocytes automated count (number/volume) 9.9 10*3/ uL 4.3-11.0 Blood erythrocytes automated count (number/volume) 4.08 10*6 /uL 4.35-5.85 Venous blood hemoglobin measurement (mass/volume) 12.0 g/dL 11.5-16.0 Blood hematocrit (volume fraction) 36 % 35-52 Automated erythrocyte mean corpuscular volume 88 [foz_us] 80-99 Automated erythrocyte mean corpuscular hemoglobin (mass per erythrocyte) 29 pg 25-34 Automated erythrocyte mean corpuscular hemoglobin concentration measurement ( mass/volume) 33 g/dL 32-36 Automated erythrocyte distribution width ratio 13.6 % 10.0-14.5 Automated blood platelet count (count/volume) 211 10*3/uL 130-400 Automated blood platelet mean volume measurement 9.9 [foz_us ] 7.4-10.4 Automated blood neutrophils/100 leukocytes 71 % 42-75 Automated blood lymphocytes/100 leukocytes 21 % 12-44 Blood monocytes/100 leukocytes 7 % 0-12 Automated blood eosinophils/100 leukocytes 1 % 0-10 Automated blood basophils/100 leukocytes 0 % 0-10 Blood neutrophils automated count (number/volume) 7.1 10*3 1.8-7.8 Blood lymphocytes automated count (number/volume) 2.1 10*3 1.0-4.0 Blood monocytes automated count (number/volume) 0.7 10*3 0.0-1.0 Automated eosinophil count 0.1 10*3/uL 0.0-0.3 Automated blood basophil count (count/volume) 0.0 10*3/uL 0.0-0.1 Comprehensive metabolic panel - 06/06/16 18:15 Serum or plasma sodium measurement (moles/volume) 138 mmol/ L 135-145 Serum or plasma potassium measurement (moles/volume) 4.2 mmol/L 3.6-5.0 Serum or plasma chloride measurement (moles/volume) 109 mmol /L 98-107 Carbon dioxide 18 mmol/L 21-32 Serum or plasma anion gap determination (moles/volume) 11 mmol/L 5-14 Serum or plasma urea nitrogen measurement (mass/volume) 5 mg /dL 7-18 Serum or plasma creatinine measurement (mass/volume) 0.56 mg /dL 0.60-1.30 Serum or plasma urea nitrogen/creatinine mass ratio 9 NRG Serum or plasma creatinine measurement with calculation of estimated glomerular filtration rate > NRG Serum or plasma glucose measurement (mass/volume) 93 mg/dL 70-105 Serum or plasma calcium measurement (mass/volume) 8.5 mg/dL 8.5-10.1 Serum or plasma total bilirubin measurement (mass/volume) 0.1 mg/dL 0.1-1.0 Serum or plasma alkaline phosphatase measurement (enzymatic activity/volume) 92 U/L 40-136 Serum or plasma aspartate aminotransferase measurement (enzymatic activity/ volume) 21 U/L 5-34 Serum or plasma alanine aminotransferase measurement (enzymatic activity/volume ) 11 U/L 0-55 Serum or plasma protein measurement (mass/volume) 7.0 g/dL 6.4-8.2 Serum or plasma albumin measurement (mass/volume) 3.6 g/dL 3.2-4.5 Serum or plasma uric acid measurement (mass/volume) - 06/06/16 18:15 Serum or plasma uric acid measurement (mass/volume) 3.6 mg/ dL 2.6-7.2 Lactate dehydrogenase 1 [enzymatic activity/volume] in serum or plasma - 18:15 Lactate dehydrogenase 1 [enzymatic activity/volume] in serum or plasma 308 U/L 125-220 24 hour urine protein measurement (mass/volume) - 06/07/16 17:48 Urine protein measurement (mass/volume) < mg/dL 6-12 24 hour urine specimen volume measurement 3300 mL NRG 24 hour urine protein measurement (mass/time) TNP 0-149 Complete blood count (CBC) with automated white blood cell (WBC) differential - 07/03/16 18:48 Blood leukocytes automated count (number/volume) 8.9 10*3/ uL 4.3-11.0 Blood erythrocytes automated count (number/volume) 3.83 10*6 /uL 4.35-5.85 Venous blood hemoglobin measurement (mass/volume) 11.3 g/dL 11.5-16.0 Blood hematocrit (volume fraction) 34 % 35-52 Automated erythrocyte mean corpuscular volume 88 [foz_us] 80-99 Automated erythrocyte mean corpuscular hemoglobin (mass per erythrocyte) 30 pg 25-34 Automated erythrocyte mean corpuscular hemoglobin concentration measurement ( mass/volume) 34 g/dL 32-36 Automated erythrocyte distribution width ratio 13.6 % 10.0-14.5 Automated blood platelet count (count/volume) 180 10*3/uL 130-400 Automated blood platelet mean volume measurement 9.7 [foz_us ] 7.4-10.4 Automated blood neutrophils/100 leukocytes 67 % 42-75 Automated blood lymphocytes/100 leukocytes 27 % 12-44 Blood monocytes/100 leukocytes 6 % 0-12 Automated blood eosinophils/100 leukocytes 1 % 0-10 Automated blood basophils/100 leukocytes 0 % 0-10 Blood neutrophils automated count (number/volume) 5.9 10*3 1.8-7.8 Blood lymphocytes automated count (number/volume) 2.4 10*3 1.0-4.0 Blood monocytes automated count (number/volume) 0.5 10*3 0.0-1.0 Automated eosinophil count 0.1 10*3/uL 0.0-0.3 Automated blood basophil count (count/volume) 0.0 10*3/uL 0.0-0.1 Comprehensive metabolic panel - 07/03/16 18:48 Serum or plasma sodium measurement (moles/volume) 140 mmol/ L 135-145 Serum or plasma potassium measurement (moles/volume) 3.4 mmol/L 3.6-5.0 Serum or plasma chloride measurement (moles/volume) 109 mmol /L 98-107 Carbon dioxide 19 mmol/L 21-32 Serum or plasma anion gap determination (moles/volume) 12 mmol/L 5-14 Serum or plasma urea nitrogen measurement (mass/volume) 5 mg /dL 7-18 Serum or plasma creatinine measurement (mass/volume) 0.57 mg /dL 0.60-1.30 Serum or plasma urea nitrogen/creatinine mass ratio 9 NRG Serum or plasma creatinine measurement with calculation of estimated glomerular filtration rate > NRG Serum or plasma glucose measurement (mass/volume) 104 mg/dL 70-105 Serum or plasma calcium measurement (mass/volume) 9.0 mg/dL 8.5-10.1 Serum or plasma total bilirubin measurement (mass/volume) 0.2 mg/dL 0.1-1.0 Serum or plasma alkaline phosphatase measurement (enzymatic activity/volume) 103 U/L 40-136 Serum or plasma aspartate aminotransferase measurement (enzymatic activity/ volume) 9 U/L 5-34 Serum or plasma alanine aminotransferase measurement (enzymatic activity/volume ) 7 U/L 0-55 Serum or plasma protein measurement (mass/volume) 6.1 g/dL 6.4-8.2 Serum or plasma albumin measurement (mass/volume) 3.3 g/dL 3.2-4.5 Serum or plasma uric acid measurement (mass/volume) - 07/03/16 18:48 Serum or plasma uric acid measurement (mass/volume) 4.0 mg/ dL 2.6-7.2 Lactate dehydrogenase 1 [enzymatic activity/volume] in serum or plasma - 18:48 Lactate dehydrogenase 1 [enzymatic activity/volume] in serum or plasma 147 U/L 125-220 Urine protein/creatinine mass ratio - 07/03/16 19:00 Urine protein measurement (mass/volume) < mg/dL 6-12 Urine creatinine measurement (mass/volume) 40 mg/dL 30-125 Urine protein/creatinine mass ratio TNP NRG Complete urinalysis with reflex to culture - 08/30/16 06:05 Urine color determination YELLOW NRG Urine clarity determination CLEAR NRG Urine pH measurement by test strip 7 5- 9 Specific gravity of urine by test strip 1.010 1.016-1.022 Urine protein assay by test strip, semi-quantitative NEGATIVE NEGATIVE Urine glucose detection by automated test strip NEGATIVE NEGATIVE Erythrocytes detection in urine sediment by light microscopy NEGATIVE NEGATIVE Urine ketones detection by automated test strip NEGATIVE NEGATIVE Urine nitrite detection by test strip NEGATIVE NEGATIVE Urine total bilirubin detection by test strip NEGATIVE NEGATIVE Urine urobilinogen measurement by automated test strip (mass/volume) NORMAL NORMAL Urine leukocyte esterase detection by dipstick 2+ NEGATIVE Automated urine sediment erythrocyte count by microscopy (number/high power field) NONE NRG Automated urine sediment leukocyte count by microscopy (number/high power field ) [HPF] NRG Bacteria detection in urine sediment by light microscopy TRACE NRG Squamous epithelial cells detection in urine sediment by light microscopy 10-25 NRG Crystals detection in urine sediment by light microscopy NONE NRG Casts detection in urine sediment by light microscopy NONE NRG Mucus detection in urine sediment by light microscopy NEGATIVE NRG Complete urinalysis with reflex to culture NO NRG Complete blood count (CBC) with automated white blood cell (WBC) differential - 08/30/16 07:05 Blood leukocytes automated count (number/volume) 9.1 10*3/ uL 4.3-11.0 Blood erythrocytes automated count (number/volume) 3.95 10*6 /uL 4.35-5.85 Venous blood hemoglobin measurement (mass/volume) 11.2 g/dL 11.5-16.0 Blood hematocrit (volume fraction) 34 % 35-52 Automated erythrocyte mean corpuscular volume 87 [foz_us] 80-99 Automated erythrocyte mean corpuscular hemoglobin (mass per erythrocyte) 28 pg 25-34 Automated erythrocyte mean corpuscular hemoglobin concentration measurement ( mass/volume) 33 g/dL 32-36 Automated erythrocyte distribution width ratio 14.3 % 10.0-14.5 Automated blood platelet count (count/volume) 189 10*3/uL 130-400 Automated blood platelet mean volume measurement 10.3 [foz_ us] 7.4-10.4 Automated blood neutrophils/100 leukocytes 64 % 42-75 Automated blood lymphocytes/100 leukocytes 28 % 12-44 Blood monocytes/100 leukocytes 8 % 0-12 Automated blood eosinophils/100 leukocytes 1 % 0-10 Automated blood basophils/100 leukocytes 0 % 0-10 Blood neutrophils automated count (number/volume) 5.8 10*3 1.8-7.8 Blood lymphocytes automated count (number/volume) 2.5 10*3 1.0-4.0 Blood monocytes automated count (number/volume) 0.7 10*3 0.0-1.0 Automated eosinophil count 0.1 10*3/uL 0.0-0.3 Automated blood basophil count (count/volume) 0.0 10*3/uL 0.0-0.1 Blood type T Indirect antibody screen panel - 08/30/16 07:05 ABO+Rh group OP [facility] Transfusion band number [id number] [facility] Blood group antibody screen NEGATIVE [facility] Comprehensive metabolic panel - 08/30/16 07:05 Serum or plasma sodium measurement (moles/volume) 135 mmol/ L 135-145 Serum or plasma potassium measurement (moles/volume) 3.9 mmol/L 3.6-5.0 Serum or plasma chloride measurement (moles/volume) 107 mmol /L 98-107 Carbon dioxide 21 mmol/L 21-32 Serum or plasma anion gap determination (moles/volume) 7 mmol/L 5-14 Serum or plasma urea nitrogen measurement (mass/volume) 5 mg /dL 7-18 Serum or plasma creatinine measurement (mass/volume) 0.58 mg /dL 0.60-1.30 Serum or plasma urea nitrogen/creatinine mass ratio 9 NRG Serum or plasma creatinine measurement with calculation of estimated glomerular filtration rate > NRG Serum or plasma glucose measurement (mass/volume) 104 mg/dL 70-105 Serum or plasma calcium measurement (mass/volume) 9.3 mg/dL 8.5-10.1 Serum or plasma total bilirubin measurement (mass/volume) 0.2 mg/dL 0.1-1.0 Serum or plasma alkaline phosphatase measurement (enzymatic activity/volume) 126 U/L 40-136 Serum or plasma aspartate aminotransferase measurement (enzymatic activity/ volume) 9 U/L 5-34 Serum or plasma alanine aminotransferase measurement (enzymatic activity/volume ) 8 U/L 0-55 Serum or plasma protein measurement (mass/volume) 5.9 g/dL 6.4-8.2 Serum or plasma albumin measurement (mass/volume) 3.0 g/dL 3.2-4.5 Serum or plasma uric acid measurement (mass/volume) - 08/30/16 07:05 Serum or plasma uric acid measurement (mass/volume) 4.1 mg/ dL 2.6-7.2 Magnesium - 08/30/16 07:05 Magnesium 1.5 mg/dL 1.8-2.4 Lactate dehydrogenase 1 [enzymatic activity/volume] in serum or plasma - 07:05 Lactate dehydrogenase 1 [enzymatic activity/volume] in serum or plasma 164 U/L 125-220 Umbilical cord arterial blood gas measurement - 08/30/16 19:51 Blood pCO2 38 mm[Hg] 35-45 Blood pO2 73 mm[Hg] 79-93 Arterial blood bicarbonate measurement (moles/volume) 20 mmol/L 23-27 Arterial blood base excess by calculation -4.5 mmol/L -2.5-2.5 Arterial blood oxygen saturation measurement 101 % 94-100 * Inhaled oxygen flow rate ROOM AIR NRG Arterial cord whole blood pH measurement 7.35 7.35-7.45 Complete blood count (CBC) with automated white blood cell (WBC) differential - 08/31/16 06:04 Blood leukocytes automated count (number/volume) 10.2 10*3/ uL 4.3-11.0 Blood erythrocytes automated count (number/volume) 3.51 10*6 /uL 4.35-5.85 Venous blood hemoglobin measurement (mass/volume) 10.0 g/dL 11.5-16.0 Blood hematocrit (volume fraction) 31 % 35-52 Automated erythrocyte mean corpuscular volume 88 [foz_us] 80-99 Automated erythrocyte mean corpuscular hemoglobin (mass per erythrocyte) 29 pg 25-34 Automated erythrocyte mean corpuscular hemoglobin concentration measurement ( mass/volume) 33 g/dL 32-36 Automated erythrocyte distribution width ratio 14.3 % 10.0-14.5 Automated blood platelet count (count/volume) 183 10*3/uL 130-400 Automated blood platelet mean volume measurement 10.2 [foz_ us] 7.4-10.4 Automated blood neutrophils/100 leukocytes 69 % 42-75 Automated blood lymphocytes/100 leukocytes 24 % 12-44 Blood monocytes/100 leukocytes 6 % 0-12 Automated blood eosinophils/100 leukocytes 1 % 0-10 Automated blood basophils/100 leukocytes 0 % 0-10 Blood neutrophils automated count (number/volume) 7.1 10*3 1.8-7.8 Blood lymphocytes automated count (number/volume) 2.5 10*3 1.0-4.0 Blood monocytes automated count (number/volume) 0.6 10*3 0.0-1.0 Automated eosinophil count 0.1 10*3/uL 0.0-0.3 Automated blood basophil count (count/volume) 0.0 10*3/uL 0.0-0.1 Encounters ACCT No. Visit Date/Time Discharge Status Pt. Type Provider Facility Loc./Unit Complaint [id number] 08/30/2016 05:51:00 2016 15:20:00 DIS Inpatient JEFF PANDEY MD [facility] LDRP GESTATIONAL HYPERTENSION, PROTEINURIA [id number] 07/03/2016 17:34:00 2016 20:30:00 DIS Outpatient JEFF PANDEY MD [facility] WSo ELEV PROTEIN LEVELS,ABD PAIN, HEADACHES [id number] 06/06/2016 17:40:00 2016 18:54:00 DIS Inpatient JEFF PANDEY MD [facility] LDRP PRE CLAMPSIA;HEADACHE [id number] 10/04/2013 10:44:00 2013 17:00:00 DIS Inpatient MARIAELENA HALE DO [facility] WS LABOR [id number] 07/03/2013 15:25:00 2013 23:59:59 CLS Outpatient MARIAELENA HALE DO [facility] RAD FOLLOW INCOMPLETE SURVEY [id number] 05/13/2013 14:56:00 2012 23:59:59 CLS Outpatient MARIAELENA HALE DO [facility] RAD SURVEY [id number] 03/12/2013 10:39:00 2012 23:59:59 CLS Outpatient GEOFFREYRYLEE TRAILER STEERER [facility] RAD DATING [id number] 11/06/2012 17:48:00 2012 23:59:59 CLS Outpatient [id number] 06/27/2016 16:55:00 ACT Outpatient JEFF PANDEY MD [facility] RAD GESTATIONAL HTN,GROWTH SCAN [id number] 05/16/2016 14:52:00 ACT Outpatient JEFF PANDEY MD [facility] RAD SURVEY [id number] 04/19/2016 14:49:00 ACT Outpatient JEFF PANDEY MD [facility] RAD CARE,SUSEQUENT PREG IN SECOND SEMESTER [id number] 06/02/2012 17:21:00 Document Registration [id number] 03/21/2011 18:23:00 Document Registration [id number] 12/19/2010 14:16:00 Document Registration [id number] 12/19/2010 10:45:00 Document Registration [id number] 12/18/2010 04:16:00 Document Registration [id number] 12/11/2010 04:06:00 Document Registration [id number] 12/10/2010 01:18:00 Document Registration [id number] 12/05/2010 14:25:00 Document Registration
--- OUTSIDE RECORDS SUMMARY | 2016-09-23 05:39 | XMS REPORT ---
Author MARIAELENA Caldera [facility] eClinicalWorks Address Unknown Phone Unavailable Care Team Providers Care Veterans Employment Representative Name Role Phone MARIAELENA HALE CP Unavailable Allergies, Adverse Reactions, Alerts Substance [...] Start Date End Date Status Dosage Macrobid [facility] [address]-45 100 MG Orally every 12 hrs Jan 07, 2016Jan 1 capsule with food Results No Known Results Summary Purpose eClinicalWorks Submission
--- OUTSIDE RECORDS SUMMARY | 2016-09-23 05:39 | XMS REPORT ---
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0-37.9, adult Z68.37 Active Medications Medication Code System Code Instructions Start Date End Date Status Dosage Mucinex [facility] [address]-20 600 MG Orally every 12 hrs Apr 10, 2016 1 tablet as needed [facility] [address]89 not defined Amoxicillin [facility] [address]-03 500 MG Orally every 12 hrs Apr 10, 2016 Apr 20, 2016 1 capsule Procedures Procedure Coding System Code Date Office Visit, Est Pt., Level 2 CPT-4 26208 Apr 11, 2016 URINE-NO MICRO CPT-4 45309 Apr 11, 2016 Vital Signs Date/Time: Apr 11, 2016 Cardiac Monitoring Heart Rate 80 bpm Weight 253 lbs Height 66 in BMI 40.835 Index Blood Pressure Diastolic 60 mmHg Blood Pressure Systolic 104 mmHg Results Name Result Date Reference Range Unit Abnormality Flag UA OB DIP (IN HOUSE) ----Glucose negative [id number] ----Protein negative [id number] Ultrasound : OB, Complete >14 WEEKS Summary Purpose eClinicalWorks Submission
--- OUTSIDE RECORDS SUMMARY | 2016-09-23 05:39 | XMS REPORT ---
Author Author ROSARIO FRANKEL [facility] eClinicalWorks Address Unknown Phone Unavailable Care Team Providers Care Medical Records Custodian Name Role Phone ROSARIO FRANKEL CP Unavailable Allergies, Adverse Reactions, Alerts Substance Reaction Event Type Sulfamethoxazole hives Drug Allergy Problems Problem Type Condition Code Onset Dates Condition Status Problem Acne, unspecified acne type L70.9 Active Problem History of hidradenitis suppurativa Z87.2 Active Problem Oral contraceptive pill surveillance Z30.41 Active Assessment Abscess of right thigh L02.415 Active Problem BMI 37.0-37.9, adult Z68.37 Active Problem Desire for Z31.9 Active Medications Medication Code System Code Instructions Start Date End Date Status Dosage Clindamycin HCl [facility] [address]-91 300 MG Orally every 8 hrs Jan 17, 2016 Jan 24, 2016 1 capsule Procedures Procedure Coding System Code Date Office Visit, Est Pt., Level 3 CPT-4 29885 Jan 17, 2016 Vital Signs Date/Time: Jan 17, 2016 Cardiac Monitoring Heart Rate 100 bpm Weight 264.4 lbs Height 66 in BMI 42.67 Index Blood Pressure Diastolic 80 mmHg Blood Pressure Systolic 140 mmHg Results No Known Results Summary Purpose eClinicalWorks Submission
--- OUTSIDE RECORDS SUMMARY | 2016-09-23 05:39 | XMS REPORT ---
Author Author BLAS BURK Organization e[employer] Address Unknown Phone Unavailable Care Team Providers Care [employer] Teammate Name Role Phone BLAS BURK CP Unavailable Allergies No Known Allergies Problems Problem Type Condition ICD-9 Code Onset Dates Condition Status Assessment Dental examination V72.2 Active Medications No Known Medications Procedures Procedure Coding System Code Date RESIN COMPOS - 1 SURFACE POSTERIOR CPT-4 D2391 Jan 11, 2015 Results No Known Results Summary Purpose eClinicalWorks Submission
== END 2016-09-01 15:20 | disposition home or self-care (01) | DRG 774 ==
LOC: DELPENDDIS → LDRP 05:51 → DELPENDDIS 09-01 15:00
PROVIDERS: ADMIT Family Medicine; ATTEND Family Medicine
PROC: 10E0XZZ Delivery of Products of Conception, External Approach (ICD-10-PCS; principal; 2016-08-30)
DX: O14.03 Mild to moderate pre-eclampsia, third trimester (principal); Z3A.38 38 weeks gestation of pregnancy; Z37.0 Single live birth
CPT/HCPCS: 36415; 80053; 81000; 82805; 83615; 83735; 84550; 85025; 86850; 86900; 86901

== ENCOUNTER → 2016-10-26 | Outpatient (CLI) | payer BC, MEDICAID ==
[~2016-10-26] MED LIST changes: +IBUP-1773 PO
--- NOTE | 2016-10-26 10:17 | Diagnostic Imaging Report ---
PROCEDURE: US Gallbladder. TECHNIQUE: Multiple real-time grayscale images were obtained over the right upper quadrant in various projections. INDICATION: Right upper quadrant pain. FINDINGS: The pancreas is largely obscured by bowel gas. The liver is fairly homogeneous with no focal lesion seen. There is hepatopetal flow in the portal vein seen. The gallbladder demonstrates no stones or wall thickening. The gallbladder however appears slightly contracted. The sonographic Acharya sign is reportedly negative. The CBD is obscured by bowel gas and probably difficult to see due to its thin caliber. The right kidney is 12.5 cm in length with no hydronephrosis or focal lesion. No fluid collection is seen in the upper abdomen. IMPRESSION: Slightly contracted gallbladder with no stones or evidence of acute cholecystitis. Dictated by: Dictated on workstation # [id number]
== END ==
LOC: RAD 06:53
PROVIDERS: ATTEND Nurse Practitioner Family
DX: R10.13 Epigastric pain (principal); R10.11 Right upper quadrant pain; R14.0 Abdominal distension (gaseous)
CPT/HCPCS: 76705